=== PATIENT | male | born 1995 | race Caucasian/White ===

== ENCOUNTER 2019-12-03 17:17 | Emergency (ER) | payer OTHER, SELFPAY ==
--- OUTSIDE RECORDS SUMMARY | 2019-12-03 17:19 | XMS REPORT ---
:1995 Demographics Address [address] [place] [address] Email Address Preferred Language Unknown Marital Status Unknown Adventist Affiliation Unknown Race Unknown Additional Race(s) Unavailable Ethnic Group Unknown [facility] Address [address] [place] [address] Care Team Providers Name Role Phone Unavailable Unavailable Unavailable Payers Payer Name Policy Type Policy Number Effective Date Expiration Date Problems This patient has no known problems. Allergies, Adverse Reactions, Alerts Allergy Allergy Status Severity Reaction(s) Onset Inactive Treating Comments Name Type Date Date Clinician No Known DA Active U 2018-11 Allergies -13 00:00:0 0 Medications This patient has no known medications. Results Test Description Test Time Test Comments Text Results Atomic Results Result Comments - XR 2019-01-30 FAX: Wally Jamison [phone] [place]: St: CHEST 10:25:00 REG 1 V Name: DAVID PACKER [facility] [place] : 1995 Age/S: 23/M [address] [facility] [employer] Unit # : [id number] Loc: E.EXP [place], [place] Phys : Wally Means [employer]ANT O[employer] [address] Acct : [id number] Dis Date: Status: REG ER PHONE #: [phone] Exam Date: 01/30/2019 0950 FAX #: [phone] Reason: cough EXAMS: CPT CODE: [id number] XR CHEST 1 V 19525 Chest Radiograph History: cough Comparison: December 04, 2018 Location: R16 A single frontal view of the chest is submitted. The heart appears unchanged in size. Pulmonary vasculature is unremarkable. The visualized lung glez appear to be free of disease. The bones appear unchanged. IMPRESSION: There is no radiographic evidence of acute cardiopulmonary disease. at 1022 Reported and signed by: Skyler Cooper M.D. CC: Wally Means NP Technologist: AKASH GALINDO Trnrird Date/Time/By: 01/30/2019 (9575) : By: Jerry PAGE 1 Signed Report FAX: Wally Jamison [phone] [place]: St: REG --------- Name: DAVID PACKER Molly [facility] [place] : 1995 Age/S: 23/M [address] [facility] Unit # : [id number] Loc: E.EXP [place], [place] : [place] [address] Acct : [id number] Dis Date: Status: REG ER PHONE #: [phone] Exam Date: 01/30/2019 0950 FAX #: [phone] Reason: cough EXAMS: CPT CODE: [id number] XR CHEST 1 V 85282 <Continued> Orig Print D/T: S: 01/30/2019 (4404) PAGE 2 Signed Report - XR 2018-12-04 FAX: Joan Sheehan NP [phone] [place]: St: CHEST 10:27:00 REG 2 V Name: DAVID PACKER [facility] [place] : 1995 Age/S: 23/M [address] [facility] Unit # : [id number] [place]: [place] : [place] [address] Acct : [id number] Dis Date: Status: REG ER PHONE #: [phone] Exam Date: 12/04/2018 1024 FAX #: [phone] Reason: cough EXAMS: CPT CODE: [id number] XR CHEST 2 V 88657 C3 TIME OF STUDY: 12/04/2018 9:35 AM REASON FOR EXAM: cough COMPARISON: None FINDINGS: PA and lateral upright views of the chest were obtained. Lungs: Normal lung volume. No mass, or consolidation. Normal pulmonary vascularity. Pleura: No pleural effusion or pneumothorax. Heart and Mediastinum: Normal cardiomediastinal silhouette and great vessels. Bones : Normal regional skeletal structures. IMPRESSION: 1. No acute cardiopulmonary process. at 1021 Reported and signed by: Jose Boles M.D. CC: Joan Sheehan NP Technologist: CHERI Carter Date/Time/By: 12/04/2018 (1027) : By: [email or web address] PAGE 1 Signed Report FAX: Joan Sheehan NP [phone] [place]: St: REG --------- Name: PACKERDAVID [facility] [place] : 1995 Age/S: 23/M [address] [employer] [facility] Unit # : [id number] Loc: E.ERS [place], [place] Phys : Joan Sheehan [employer] OPERATOR [address] Acct : [id number] Dis Date: Status: REG ER PHONE #: [phone] Exam Date: 12/04/2018 1024 FAX #: [phone] Reason: cough EXAMS: CPT CODE: [id number] XR CHEST 2 V 85406 <Continued> Orig Print D/T: S: 12/04/2018 (7700) PAGE 2 Signed Report
--- NOTE | 2019-12-03 18:19 | RAD REPORT ---
EXAM DESCRIPTION: RAD - Pelvis - 12/03/2019 6:12 pm CLINICAL HISTORY: fall COMPARISON: No comparisons FINDINGS: No fracture, dislocation or radiographic evidence of AVN. IMPRESSION: Negative study.
--- NOTE | 2019-12-03 18:46 | RAD REPORT ---
EXAM DESCRIPTION: RAD - Femur Right - 12/03/2019 6:32 pm CLINICAL HISTORY: fall;Pain COMPARISON: No comparisons FINDINGS: No fracture or dislocation. Large lateral right soft tissue hematoma.
[2019-12-03] MEDS ORDERED: HYDROCODONE/APAP 7.5/325 MG TAB ONE (18:48)
--- NOTE | 2019-12-03 19:20 | RAD REPORT ---
EXAM DESCRIPTION: US - Extremity Venous Uni Ltd - 12/03/2019 7:10 pm CLINICAL HISTORY: PAIN Leg swelling and edema. COMPARISON: No comparisons FINDINGS: Right lower extremity venous system was interrogated with Doppler technique. Normal flow, compressibility and augmentation was noted. There is no DVT present. IMPRESSION: No evidence of right lower extremity deep venous thrombosis.
--- NOTE | 2019-12-03 19:52 | ER ---
Nurse's Notes [facility] Name: Marcos Hobbs Age: 24 yrs Sex: Male : 1995 Arrival Date: 12/03/2019 Time: 17:20 Bed 19 Private MD: Diagnosis: Hematoma right upper leg;Pain in right leg Presentation: 12/02 17:28 Chief complaint: Patient states: 2 weeks ago, skate boarding accident where pt fell and ca1 landed on R thigh/hip. It hurt for 2 days, then went away. Reports swelling noted on the R thigh since the accident. Today, it started to hurt really bad and swelling got bigger, very tender to touch, firm upon palpation. Coronavirus screen: The patient has NOT traveled to a country currently being monitored by the CDC within the last 14 days. The patient has NOT had contact with any known and/or suspected case of coronavirus. Ebola Screen: Patient negative for fever greater than or equal to 101.5 degrees Fahrenheit, and additional compatible Ebola Virus Disease symptoms Patient denies exposure to infectious person. Patient denies travel to an Ebola-affected area in the 21 days before illness onset. No symptoms or risks identified at this time. Initial Sepsis Screen: Does the patient meet any 2 criteria? No. Patient's initial sepsis screen is negative. Does the patient have a suspected source of infection? No. Patient's initial sepsis screen is negative. Risk Assessment: Do you want to hurt yourself or someone else? Patient reports no desire to harm self or others. Onset of symptoms was December 03, 2019. 17:28 Method Of Arrival: Ambulatory ca1 17:28 Acuity: DEANA 3 ca1 Historical: - Allergies: 17:33 No Known Allergies; ca1 - Home Meds: 17:33 None [Active]; ca1 - PMHx: 17:33 None; ca1 - PSHx: 17:34 Tonsillectomy; ca1 - Immunization history:: Adult Immunizations up to date, Last tetanus immunization: < 5 years ago Flu vaccine is up to date. - Social history:: Smoking status: Patient reports the use of cigarette tobacco products, smokes one pack cigarettes per day. Screenin:11 Abuse screen: Denies threats or abuse. Nutritional screening: No deficits noted. em Tuberculosis screening: No symptoms or risk factors identified. Fall Risk None identified. Assessment: 18:06 Reassessment: currently in x-ray dept. em 18:16 General: Appears in no apparent distress. uncomfortable, Behavior is calm, cooperative, em appropriate for age. Pain: Complains of pain in lateral aspect of right thigh Pain currently is 10 out of 10 on a pain scale. Pain began 2.5 weeks ago. Neuro: Level of Consciousness is awake, alert, obeys commands, Oriented to person, place, time, situation, Appropriate for age. Cardiovascular: Capillary refill < 3 seconds Patient's skin is warm and dry. Respiratory: Airway is patent Respiratory effort is even, unlabored, Respiratory pattern is regular, symmetrical. Derm: Skin is intact, is healthy with good turgor, Skin is pink, warm \T\ dry. Musculoskeletal: Capillary refill < 3 seconds, Range of motion: intact in all extremities, Swelling present in lateral aspect of right thigh. 19:10 Reassessment: Patient appears in no apparent distress at this time. Patient and/or family updated on plan of care and expected duration. Pain level reassessed. Patient is alert, oriented x 3, equal unlabored respirations, skin warm/dry/pink. 20:10 Reassessment: Patient appears in no apparent distress at this time. No changes from previously documented assessment. Patient and/or family updated on plan of care and expected duration. Pain level reassessed. Patient is alert, oriented x 3, equal unlabored respirations, skin warm/dry/pink. Vital Signs: 17:28 BP 103 / 81; Pulse 85; Resp 16 S; Temp 98.3(TE); Pulse Ox 99% on NC; Weight 120.66 kg ca1 (R); Height 6 ft. 2 in. (187.96 cm) (R); Pain 10/10; 20:00 BP 123 / 99; Pulse 85; Resp 18; Pulse Ox 100% on R/A; wh 17:28 Body Mass Index 34.15 (120.66 kg, 187.96 cm) ca1 ED Course: 17:20 Patient arrived in ED. rg4 17:21 Fracisco Mera PA is PHCP. cp 17:21 Fracisco Raygoza MD is Attending Physician. cp 17:33 Triage completed. ca1 17:34 Arm band placed on right wrist. ca1 17:40 Phil Otoole, RN is Primary Nurse. em 18:12 XRAY Pelvis In Process Unspecified. EDMS 18:12 Patient has correct armband on for positive identification. Bed in low position. Call em light in reach. 18:32 XRAY Femur RIGHT In Process Unspecified. EDMS 19:11 US Extremity Venous Unilateral Ltd In Process Unspecified. EDMS 19:50 Daniel Tellez MD is Referral Physician. cp 20:16 Crutch training done. Douglas wrap to lateral aspect of right thigh. wh 20:18 No provider procedures requiring assistance completed. Patient did not have IV access during this emergency room visit. Administered Medications: 18:44 Drug: Hydrocodone-Acetaminophen (7.5 mg-325 mg) 1 tabs Route: PO; em 20:15 Follow up: Response: No adverse reaction; Pain is decreased; RASS: Alert and Calm (0) Outcome: 19:52 Discharge ordered by MD. cp 20:19 Discharged to home ambulatory, with crutches, with friend. wh 20:19 Condition: stable 20:19 Discharge instructions given to patient, Instructed on discharge instructions, follow up and referral plans. no drinking with medication, no driving heavy equipment, medication usage, POC Demonstrated understanding of instructions, follow-up care, medications, crutch walking, POC Prescriptions given X 1. 20:19 Patient left the ED. Signatures: Dispatcher [employer] Phil Peterson, RN RN Fracisco Barton, JAK PA Soila Wills rg4 Marco Antonio Hogan Danielle Goetz RN RN ca1
--- NOTE | 2019-12-03 19:52 | EDPHYS ---
Physician Documentation [facility] Name: Marcos Hobbs Age: 24 yrs Sex: Male : 1995 Arrival Date: 12/03/2019 Time: 17:20 Bed 19 Private MD: ED Physician Fracisco Raygoza HPI: 12/02 17:55 This 24 yrs old Male presents to ER via Ambulatory with complaints of Leg cp Pain. 17:55 The patient presents with an injury, pain, that is acute. The complaints affect the cp lateral aspect of right thigh. 17:55 Context: resulted from the patient falling, the patient can fully bear weight, the cp patient is able to ambulate. 17:55 Onset: The symptoms/episode began/occurred 2 week(s) ago. Treatment prior to arrival cp includes: no previous treatment. Historical: - Allergies: 17:33 No Known Allergies; ca1 - Home Meds: 17:33 None [Active]; ca1 - PMHx: 17:33 None; ca1 - PSHx: 17:34 Tonsillectomy; ca1 - Immunization history:: Adult Immunizations up to date, Last tetanus immunization: < 5 years ago Flu vaccine is up to date. - Social history:: Smoking status: Patient reports the use of cigarette tobacco products, smokes one pack cigarettes per day. ROS: 18:00 Constitutional: Negative for body aches, chills, fever, poor PO intake. cp 18:00 Eyes: Negative for injury, pain, redness, and discharge. cp 18:00 Cardiovascular: Negative for chest pain, palpitations. 18:00 Respiratory: Negative for cough, shortness of breath, wheezing. 18:00 Abdomen/GI: Negative for abdominal pain, nausea, vomiting, and diarrhea. 18:00 Back: Negative for pain at rest, pain with movement. 18:00 MS/extremity: Positive for pain, swelling, tenderness, of the lateral aspect of right thigh, Negative for decreased range of motion, paresthesias. 18:00 Skin: Negative for ecchymosis, erythema, rash. 18:00 All other systems are negative. Exam: 18:10 Constitutional: The patient appears in no acute distress, alert, awake, non-toxic, well cp developed, well nourished, uncomfortable. 18:10 Head/Face: Normocephalic, atraumatic. cp 18:10 Eyes: Periorbital structures: appear normal, Conjunctiva: normal, no exudate, no injection, Sclera: no appreciated abnormality, Lids and lashes: appear normal, bilaterally. 18:10 Chest/axilla: Inspection: normal, Palpation: is normal, no crepitus, no tenderness. 18:10 Cardiovascular: Rate: normal, Rhythm: regular. 18:10 Respiratory: the patient does not display signs of respiratory distress, Respirations: normal. 18:10 Abdomen/GI: Inspection: abdomen appears normal, Bowel sounds: active, all quadrants, Palpation: abdomen is soft and non-tender, in all quadrants, voluntary guarding, is not appreciated, involuntary guarding, is not appreciated. 18:10 Back: pain, is absent, ROM is normal. 18:10 Musculoskeletal/extremity: Extremities: grossly normal except: noted in the lateral aspect of right thigh: pain, swelling, tenderness, There is no evidence of ecchymosis, erythema, ROM: intact in all extremities, Perfusion: the extremity is normally perfused throughout, Sensation intact. 18:10 Skin: cellulitis, is not appreciated, no rash present. Vital Signs: 17:28 BP 103 / 81; Pulse 85; Resp 16 S; Temp 98.3(TE); Pulse Ox 99% on NC; Weight 120.66 kg ca1 (R); Height 6 ft. 2 in. (187.96 cm) (R); Pain 10/10; 20:00 BP 123 / 99; Pulse 85; Resp 18; Pulse Ox 100% on R/A; wh 17:28 Body Mass Index 34.15 (120.66 kg, 187.96 cm) ca1 MDM: 17:35 Patient medically screened. nuzhat 18:30 Differential diagnosis: closed fracture, contusion, hematoma, abscess, cellulitis. cp 19:11 ED course: no active prescriptions for controlled substances noted according to [facility] prescription monitoring program. 19:47 Physician consultation: Daniel Tellez MD was called at 19:47, was contacted at 19:47, regarding patient's condition, outpatient follow-up, tomorrow, and will see patient in office, tomorrow. 19:51 Data reviewed: vital signs, nurses notes, radiologic studies, plain films, ultrasound. 19:51 Counseling: I had a detailed discussion with the patient and/or guardian regarding: the cp historical points, exam findings, and any diagnostic results supporting the discharge/admit diagnosis, radiology results, the need for outpatient follow up, for definitive care, a general surgeon. Response to treatment: the patient's symptoms have markedly improved after treatment, and as a result, I will discharge patient. 12/02 17:48 Order name: XRAY Pelvis; Complete Time: 19:07 cp 12/02 19:07 Interpretation: Report reviewed. cp 12/02 17:48 Order name: XRAY Femur RIGHT; Complete Time: 19:07 cp 12/02 19:07 Interpretation: Report reviewed. cp 12/02 17:49 Order name: US Extremity Venous Unilateral Ltd; Complete Time: 19:29 cp 12/02 19:47 Order name: Douglas Wrap; Complete Time: 20:15 cp 12/02 19:47 Order name: Crutches; Complete Time: 20:15 cp Administered Medications: 18:44 Drug: Hydrocodone-Acetaminophen (7.5 mg-325 mg) 1 tabs Route: PO; em 20:15 Follow up: Response: No adverse reaction; Pain is decreased; RASS: Alert and Calm (0) wh Disposition: 12/03 06:11 Co-signature as Attending Physician, Fracisco Raygoza MD I agree with the assessment and nuzhat plan of care. Disposition: 12/03/19 19:52 Discharged to Home. Impression: Hematoma right upper leg, Pain in right leg. - Condition is Stable. - Discharge Instructions: Hematoma, Musculoskeletal Pain. - Prescriptions for Tylenol- Codeine #3 300-30 mg Oral Tablet - take 2 tablets by ORAL route every 6 hours As needed; 20 tablet. - Medication Reconciliation Form, Thank You Letter, Antibiotic Education, Prescription Opioid Use, Work release form form. - Follow up: Daniel Tellez MD; When: Tomorrow; Reason: Recheck today's complaints. - Problem is new. - Symptoms have improved. Signatures: Dispatcher [employer] Fracisco Delgado MD MD cha Munoz, Edgar, RN RN Fracisco Barton PA PA cp Habalo, Winsy wh Acob, Cheryl, RN RN ca1 Corrections: (The following items were deleted from the chart) 12/02 20:19 19:52 12/03/2019 19:52 Discharged to Home. Impression: Hematoma right upper leg; Pain wh in right leg. Condition is Stable. Forms are Medication Reconciliation Form, Thank You Letter, Antibiotic Education, Prescription Opioid Use. Follow up: Daniel Tellez; When: Tomorrow; Reason: Recheck today's complaints. Problem is new. Symptoms have improved. cp
[2019-12-03 20:27] VITALS: TEMP 98.3
[2019-12-03 20:28] VITALS: BP 123/99; O2SAT 100
== END 2019-12-03 20:19 | disposition home or self-care (01) ==
LOC: ER 17:17
DX: S80.11XA Contusion of right lower leg, initial encounter (principal); M79.604 Pain in right leg; X58.XXXA Exposure to other specified factors, initial encounter; Y93.9 Activity, unspecified
CPT/HCPCS: 72170; 93971; 99284

== ENCOUNTER 2020-11-12 16:32 | Emergency (ER) | payer SELFPAY ==
--- OUTSIDE RECORDS SUMMARY | 2020-11-12 16:34 | XMS REPORT | Continuity of Care Document ---
:1995 Author Organization [facility] t Address [address] [place] [address] Care Team Providers Name Role Phone Genna Mujica Attending Clinician Payers Payer Name Policy Type Policy Number Effective Date Expiration Date S ource Problems This patient has no known problems. Allergies, Adverse Reactions, Alerts Allergy Allergy Status Severity Reaction(s) Onset Inactive Treating Comm ents Source Name Type Date Date Clinician No Known DA [facility] Medications This patient has no known medications. Procedures This patient has no known procedures. Encounters Start End Encounter Admission Attending Care Care Encounter Source Date/Time Date/Time Type Type Clinicians Facility Department ID 2019-12-04 2019-12-04 [facility] [id number] 11:59:23 13:08:00 Rebekah Stanton [id number] [place] [id number] [place] [id number] Results Test Description Test Time Test Comments Results Result Sour e Comments - XR CHEST 1 V 2019-01-30 FAX: Y 10:25:00 Wally Means [phone] [place]: St: REG Name: DAVID HOBBS [facility] : 1995 Age/S: 23/M [address] Unit #: [id number] Loc: E.EXP [place], [place] Phys: Wally Means RESIDENTIAL [place] [address] Acct: [id number] Dis Date: Status: REG ER PHONE #: [phone] Exam Date: 01/30/2019 0950 FAX #: [phone] Reason: cough EXAMS: CPT CODE: [id number] XR CHEST 1 V 02418 Chest Radiograph History: cough Comparison: December 04, 2018 Location: R16 A single frontal view of the chest is submitted. The heart appears unchanged in size. Pulmonary vasculature is unremarkable. The visualized lung glez appear to be free of disease. The bones appear unchanged. IMPRESSION: There is no radiographic evidence of acute cardiopulmonary disease. at 1024 Reported and signed by: Skyler Cooper M.D. CC: Wally Means NP Technologist: AKASH Carter Date/Time/By: 01/30/2019 (9588) : By: JaisonPMT PAGE 1 Signed Report FAX: Wally Jamison [phone] [place]: St: REG Name: DAVID HOBBS [facility] : 1995 Age/S: 23/M [address] Unit #: [id number] Loc: E.EXP [place], [place] Phys: Wally Means RESIDENTIAL [place] [address] Acct: [id number] Dis Date: Status: REG ER PHONE #: [phone] Exam Date: 01/30/2019 0950 FAX #: [phone] Reason: cough EXAMS: CPT CODE: [id number] XR CHEST 1 V 96155 <Continued> Orig Print D/T: S: 01/30/2019 (7254) PAGE 2 Signed Report - XR CHEST 2 V 2018-12-04 FAX: 10:27:00 Joan Sheehan NP [phone] [place]: St: REG Name: HOBBSDAVID [facility] : 1995 Age/S: 23/M [address] Unit #: [id number] Loc: E.ERS [place], [place] Phys: AguilaJoan RESIDENTIAL [place] [address] Acct: [id number] Dis Date: Status: REG ER PHONE #: [phone] Exam Date: 12/04/2018 1024 FAX #: [phone] Reason: cough EXAMS: CPT CODE: [id number] XR CHEST 2 V 35223 C3 TIME OF STUDY: 12/04/2018 9:35 AM REASON FOR EXAM: cough COMPARISON: None FINDINGS: PA and lateral upright views of the chest were obtained. Lungs: Normal lung volume. No mass, or consolidation. Normal pulmonary vascularity. Pleura: No pleural effusion or pneumothorax. Heart and Mediastinum: Normal cardiomediastinal silhouette and great vessels. Bones: Normal regional skeletal structures. IMPRESSION: 1. No acute cardiopulmonary process. at 1027 Reported and signed by: Jose Boles M.D. CC: Joan Sheehan NP Technologist: CHERI GENTILE Trncrystalrd Date/Time/By: 12/04/2018 (1024) : By: [email or web address] PAGE 1 Signed Report FAX: Joan Sheehan NP [phone] [place]: St: REG Name: DAVID HOBBS [facility] [place] [facility] : 1995 Age/S: 23/M [address] [facility] Unit #: [id number] Loc: [place], [place]: [place] [address] Acct: [id number] Dis Date: Status: REG ER PHONE #: [phone] Exam Date: 12/04/2018 1024 FAX #: [phone] Reason: cough EXAMS: CPT CODE: [id number] XR CHEST 2 V 80889 <Continued> Orig Print D/T: S: 12/04/2018 (7337) PAGE 2 Signed Report
--- NOTE | 2020-11-12 18:30 | RAD REPORT ---
EXAM DESCRIPTION: Cailin Lunsford (2 Views)11/12/2020 5:37 pm CLINICAL HISTORY: Chest pain COMPARISON: None FINDINGS: The lungs appear clear of acute infiltrate. The heart is normal size IMPRESSION: No acute abnormalities displayed
--- NOTE | 2020-11-12 21:13 | ER ---
Nurse's Notes [facility] Name: Marcos Hobbs Age: 25 yrs Sex: Male : 1995 Arrival Date: 11/12/2020 Time: 16:35 Bed Waiting Private MD: Diagnosis: Presentation: 11/12 16:44 Chief complaint: Patient states: i am having pain under my right breast and when i tw2 breath or when i cough it hurts really bad, bending over is like impossible, its a constant pain, it started hurting about 3 days ago. Coronavirus screen: shortness of breath, Client presents with at least one sign or symptom that may indicate coronavirus-19. Standard/surgical mask placed on the client. Provider contacted for isolation considerations. Ebola Screen: Patient denies travel to an Ebola-affected area in the 21 days before illness onset. Initial Sepsis Screen: Does the patient meet any 2 criteria? No. Patient's initial sepsis screen is negative. Does the patient have a suspected source of infection? No. Patient's initial sepsis screen is negative. Risk Assessment: Do you want to hurt yourself or someone else? Patient reports no desire to harm self or others. Onset of symptoms was November 12, 2020. 16:44 Method Of Arrival: Ambulatory tw2 16:44 Acuity: DEANA 3 tw2 Triage Assessment: 16:47 General: Appears in no apparent distress. Behavior is calm, cooperative, appropriate tw2 for age. Pain: Complains of pain in right lateral anterior chest and right breast. Respiratory: Reports shortness of breath at rest on exertion pain with cough pain with movement pain with respiration. GI: No signs and/or symptoms were reported involving the gastrointestinal system. Historical: - Allergies: 16:47 No Known Allergies; tw2 - Home Meds: 16:47 None [Active]; tw2 - PMHx: 16:47 None; tw2 - PSHx: 16:47 Tonsillectomy; tw2 - Immunization history:: Adult Immunizations. - Social history:: Smoking status: Patient reports the use of cigarette tobacco products, denies chronic smoking, but will smoke occasionally. Assessment: 21:11 Reassessment: Reassessment: Talked to the pt on the phone. He states, "I left after ca1 waiting 3 hours and I cannot come back anymore". Vital Signs: 16:44 BP 117 / 66; Pulse 85; Resp 17; Temp 98.5(TE); Pulse Ox 98% on R/A; Weight 113.4 kg tw2 (R); Height 6 ft. 2 in. (187.96 cm); Pain 7/10; 16:44 Body Mass Index 32.10 (113.40 kg, 187.96 cm) tw2 ED Course: 16:35 Patient arrived in ED. as 16:46 Triage completed. tw2 16:48 Arm band placed on. tw2 17:36 Chest Pa And Lat (2 Views) XRAY In Process Unspecified. EDMS 21:05 Patient's name was called from ER lobby. No response. Unable to locate patient. Will ca1 disposition as left without being seen by a provider. Administered Medications: No medications were administered Outcome: 21:13 Patient left the ED. ca1 Signatures: Dispatcher [employer] EDMS Moraima Cedeño Tara, RN RN tw2 Danielle Goetz RN RN ca1 Corrections: (The following items were deleted from the chart) 21:12 21:11 Reassessment: ca1 ca1
[2020-11-13 02:46] VITALS: BP 117/66; TEMP 98.5; O2SAT 98
== END 2020-11-12 21:13 | disposition left against medical advice (07) ==
LOC: ER 16:32
DX: Z53.21 Procedure and treatment not carried out due to patient leaving prior to being seen by health care provider (principal)
CPT/HCPCS: 71046; 99282

== ENCOUNTER 2020-11-15 13:35 | Emergency (ER) | payer SELFPAY ==
--- OUTSIDE RECORDS SUMMARY | 2020-11-15 13:38 | XMS REPORT | Continuity of Care Document ---
:1995 Author Organization [facility] t Address [address] [place] [address] Care Team Providers Name Role Phone Genna Mujica Attending Clinician Payers Payer Name Policy Type Policy Number Effective Date Expiration Date S ource Problems This patient has no known problems. Allergies, Adverse Reactions, Alerts Allergy Allergy Status Severity Reaction(s) Onset Inactive Treating Comm ents Source Name Type Date Date Clinician No Known DA Active U [facility] 3 [facility] s 00:00: d 00 [facility] Medications This patient has no known medications. Procedures This patient has no known procedures. Encounters Start End Encounter Admission Attending Care Care Encounter Source Date/Time Date/Time Type Type Clinicians Facility Department ID 2019-12-04 2019-12-04 [facility] [id number] 11:59:23 13:08:00 Rebekah Stanton [id number] [place] [id number] [place] [id number] Results Test Description Test Time Test Comments Results Result [facility] e Comments - XR CHEST 1 V 2019-01-30 FAX: Y 10:25:00 Wally Means [phone] [place]: St: REG Name: PACKERDAVID [facility] : 1995 Age/S: 23/M [address] Unit #: [id number] Loc: E.EXP [place], [place] Phys: Wally Means RENAL NURSE [address] Acct: [id number] Dis Date: Status: REG ER PHONE #: [phone] Exam Date: 01/30/2019 0950 FAX #: [phone] Reason: cough EXAMS: CPT CODE: [id number] XR CHEST 1 V 85555 Chest Radiograph History: cough Comparison: December 04, [...] Means NP Technologist: AKASH Carter Date/Time/By: 01/30/2019 (6967) : By: JaisonPMT PAGE 1 Signed Report FAX: Wally Jamison [phone] [place]: St: REG Name: DAVID PACKER [facility] : 1995 Age/S: 23/M [address] Unit #: [id number] Loc: E.EXP [place], [place] Phys: Wally Maens RENAL NURSE [address] Acct: [id number] Dis Date: Status: REG ER PHONE #: [phone] Exam Date: 01/30/2019 0950 FAX #: [phone] Reason: cough EXAMS: CPT CODE: [id number] XR CHEST 1 V 46055 <Continued> Orig Print D/T: S: 01/30/2019 (9168) PAGE 2 Signed Report - XR CHEST 2 V 2018-12-04 FAX: 10:27:00 Joan Sheehan NP [phone] [place]: St: REG Name: DAVID PACKER [facility] : 1995 Age/S: 23/M [address] [facility] Unit #: [id number] [place]: [place] Phys: Joan Sheehan RENAL NURSE [address] Acct: [id number] Dis Date: Status: REG ER PHONE #: [phone] Exam Date: 12/04/2018 1024 FAX #: [phone] Reason: cough EXAMS: CPT CODE: [id number] XR CHEST 2 V 33996 C3 TIME OF STUDY: 12/04/2018 9:35 AM REASON FOR EXAM: cough COMPARISON: None FINDINGS: PA and lateral upright views of the chest were obtained. Lungs: Normal lung volume. No mass, or consolidation. Normal pulmonary vascularity. Pleura: No pleural effusion or pneumothorax. Heart and Mediastinum: Normal cardiomediastinal silhouette and great vessels. Bones: Normal regional skeletal structures. IMPRESSION: 1. No acute cardiopulmonary process. at 1026 Reported and signed by: Jose Boles M.D. CC: Joan Sheehan NP Technologist: CHERI Carter Date/Time/By: 12/04/2018 (5209) : By: [email or web address] PAGE 1 Signed Report FAX: Joan Sheehan NP [phone] [place]: St: REG Name: DAVID PACKER [facility] : 1995 Age/S: 23/M [address] [facility] Unit #: [id number] [place]: [place]: [place] [id number] Acct: [id number] Dis Date: Status: REG ER PHONE #: [phone] Exam Date: 12/04/2018 1024 FAX #: [phone] Reason: cough EXAMS: CPT CODE: [id number] XR CHEST 2 V 51082 <Continued> Orig Print D/T: S: 12/04/2018 (7350) PAGE 2 Signed Report
--- NOTE | 2020-11-15 16:28 | ER ---
Nurse's Notes [facility] Name: Marcos Hobbs Age: 25 yrs Sex: Male : 1995 Arrival Date: 11/15/2020 Time: 13:43 Bed Waiting Private MD: Diagnosis: Presentation: 11/15 13:45 Chief complaint: Patient states: right side pain with coughing or breathing x 5 days. sv Coronavirus screen: Client denies travel out of the [place] in the last 14 days. At this time, the client does not indicate any symptoms associated with coronavirus-19. Ebola Screen: No symptoms or risks identified at this time. Risk Assessment: Do you want to hurt yourself or someone else? Patient reports no desire to harm self or others. Onset of symptoms was October 2020. 13:45 Method Of Arrival: Ambulatory sv 13:45 Acuity: DEANA 4 sv 13:47 Initial Sepsis Screen: Does the patient meet any 2 criteria? No. Patient's initial sv sepsis screen is negative. Does the patient have a suspected source of infection? No. Patient's initial sepsis screen is negative. Triage Assessment: 13:48 General: Appears in no apparent distress. uncomfortable, Behavior is calm, cooperative, sv appropriate for age. Pain: Complains of pain in right lateral anterior chest. Neuro: Level of Consciousness is awake, alert, obeys commands, Oriented to person, place, time, situation, Gait is steady. Respiratory: Respiratory effort is even, unlabored. Historical: - Allergies: 13:46 No Known Allergies; sv - PMHx: 13:46 None; sv - PSHx: 13:46 Tonsillectomy; sv - Immunization history:: Adult Immunizations unknown. - Social history:: Smoking status: Patient reports the use of cigarette tobacco products, smokes one-half pack cigarettes per day. Assessment: 13:49 Reassessment: Received VO from Dr Raygoza for CXR. sv Vital Signs: 13:47 BP 112 / 66; Pulse 87; Resp 20; Temp 98.3; Pulse Ox 100% ; Weight 113.4 kg; Height 6 sv ft. 2 in. (187.96 cm); Pain 5/10; 13:47 Body Mass Index 32.10 (113.40 kg, 187.96 cm) sv ED Course: 13:43 Patient arrived in ED. mr 13:45 Arm band placed on. sv 13:46 Triage completed. sv 15:58 Patient's name was called from ER lobby. No response. sv 16:17 Patient's name was called from ER lobby. No response. sv 16:27 Patient's name was called from ER lobby. No response. sv Administered Medications: No medications were administered Outcome: 16:27 Patient left the ED. sv Signatures: Padmini Sánchez RN RN sv Filemon Kiley mr Corrections: (The following items were deleted from the chart) 13:49 13:47 Pulse 87bpm; Resp 20bpm; Pulse Ox 100%; Temp 98.3F; 113.4 kg; Height 6 ft. 2 in.; sv BMI: 32.1; Pain 5/10; sv
[2020-11-15 16:41] VITALS: BP 112/66; TEMP 98.3; O2SAT 100
== END 2020-11-15 16:27 | disposition left against medical advice (07) ==
LOC: ER 13:35
DX: Z53.21 Procedure and treatment not carried out due to patient leaving prior to being seen by health care provider (principal)
CPT/HCPCS: 99281

== ENCOUNTER 2021-05-07 10:49 | Emergency (ER) | payer SELFPAY ==
--- OUTSIDE RECORDS SUMMARY | 2021-05-07 10:51 | XMS REPORT | Continuity of Care Document ---
:1995 Author Organization [facility] t Address [address] [place] [address] Care Team Providers Name Role Phone Alvarez Attending Clinician Jocelyn Zepeda Attending Clinician Doctor Unassigned, Name Attending Clinician Unavailable Genna Mujica Attending Clinician Payers Payer Name Policy Type Policy Number Effective Date Expiration Date S ource Problems This patient has no known problems. Allergies, Adverse Reactions, Alerts Allergy Allergy Status Severity Reaction(s) Onset Inactive Treating Comm ents Source Name Type Date Date Clinician No Known DA Active U 2018- [facility]ie 3-13 [place] s 00:00: d 00 [facility] Medications This patient has no known medications. Procedures This patient has no known procedures. Encounters Start End Encounter Admission Attending Care Care Encounter Source Date/Time Date/Time Type Type Clinicians Facility Department ID 2021-05-07 2021-05-07 Emergency Singer [facility] [id number] 09:43:00 10:22:00 Nolberto Stanton [id number] [place] 4.2.7.2.686 [place] [id number] 2021-03-10 2021-03-10 Emergency Angelita Boss [facility] [id number] 13:05:00 14:24:00 Jocelyn Stanton 350.1.13.10 [place] 4.2.7.2.686 [place] [id number] 2020-11-16 2020-11-16 Emergency Angelita Boss [facility] [id number] 15:16:00 16:37:00 Jocelyn Stanton 350.1.13.10 [place] 4.2.7.2.686 [place] [id number] 2020-11-16 2020-11-16 Orders Doctor BIBI [id number] 00:00:00 00:00:00 Only Unassigned, SEBASTIAN 350.1.13.10 [place] [id number] 2019-12-04 2019-12-04 Emergency Berna [facility] [id number] 11:59:23 13:08:00 Rebekah Stanton [id number] [place] 4.2.7.2.686 [place] [address] [id number] Results Test Description Test Time Test Comments Results Result [facility] e Comments - XR CHEST 1 V 2019-01-30 FAX: Y 10:25:00 Wally Means [phone] [place]: St: REG Name: DAVID PACKER [facility] : 1995 Age/S: 23/M [address] [facility] [email or web address] [facility] Unit #: [id number] Loc: E.EXP [place], [place] Phys: Wally Means BOOK REVIEWER [address] Acct: [id number] Dis Date: Status: REG ER PHONE #: [phone] Exam Date: 01/30/2019 0950 FAX #: [phone] Reason: cough EXAMS: CPT CODE: [id number] XR CHEST 1 V 76786 Chest Radiograph History: cough Comparison: December 04, 2018 Location: R16 A single frontal view of the chest is submitted. The heart appears unchanged in size. Pulmonary vasculature is unremarkable. The visualized lung glez appear to be free of disease. The bones appear unchanged. IMPRESSION: There is no radiographic evidence of acute cardiopulmonary disease. at 1028 Reported and signed by: Skyler Cooper M.D. CC: Wally Means NP Technologist: AKASH GALINDO Trnscrd Date/Time/By: 01/30/2019 (5282) : By: JaisonPMT PAGE 1 Signed Report FAX: Wally Jamison [phone] [place]: St: REG Name: DAVID PACKER [facility] : 1995 Age/S: 23/M [address] [facility] [email or web address] [facility] Unit #: [id number] Loc: E.EXP [place], [place] Phys: Wally Means BOOK REVIEWER [address] Acct: [id number] Dis Date: Status: REG ER PHONE #: [phone] Exam Date: 01/30/2019 0950 FAX #: [phone] Reason: cough EXAMS: CPT CODE: [id number] XR CHEST 1 V 02649 <Continued> Orig Print D/T: S: 01/30/2019 (1494) PAGE 2 Signed Report - XR CHEST 2 V 2018-12-04 FAX: 10:27:00 Joan Sheehan NP [phone] [place]: St: REG Name: DAVID PACKER [facility] : 1995 Age/S: 23/M [address] [facility] [email or web address] [facility] Unit #: [id number] Loc: [place], [place]: [place] [id number] Acct: [id number] Dis Date: Status: REG ER PHONE #: [phone] Exam Date: 12/04/2018 1024 FAX #: [phone] Reason: cough EXAMS: CPT CODE: [id number] XR CHEST 2 V 11230 C3 TIME OF STUDY: 12/04/2018 9:35 AM [...] CC: Joan Sheehan NP Technologist: CHERI GENTILE [facility] Date/Time/By: 12/04/2018 (4286) : By: [email or web address] PAGE 1 Signed Report FAX: Joan Sheehan NP [phone] [place]: St: REG Name: PACKERDAVID P [facility] : 1995 Age/S: 23/M [address] [facility] Unit #: [id number] Loc: RA[place], [place]: [place] [id number] Acct: [id number] Dis Date: Status: REG ER PHONE #: [phone] Exam Date: 12/04/2018 1024 FAX #: [phone] Reason: cough EXAMS: CPT CODE: [id number] XR CHEST 2 V 17006 <Continued> Orig Print D/T: S: 12/04/2018 (3723) PAGE 2 Signed Report
--- NOTE | 2021-05-07 13:17 | ER ---
Nurse's Notes [facility] Name: Marcos Hobbs Age: 25 yrs Sex: Male : 1995 Arrival Date: 05/07/2021 Time: 10:52 Bed 28 Private MD: Diagnosis: Coronavirus infection, unspecified Presentation: 05/07 11:48 Chief complaint: Patient states: body aches. Coronavirus screen: Client denies travel da3 out of the [place] in the last 14 days. Ebola Screen: No symptoms or risks identified at this time. Risk Assessment: Do you want to hurt yourself or someone else? Patient reports no desire to harm self or others. 11:48 Method Of Arrival: Ambulatory da3 11:48 Acuity: DEANA 5 da3 Triage Assessment: 11:51 General: Appears in no apparent distress. Behavior is calm, cooperative. da3 Historical: - Allergies: 11:49 No Known Allergies; da3 - PMHx: 11:49 Arthritis; da3 - Immunization history:: Client reports having NOT received the Covid vaccine. Vital Signs: 11:51 BP 116 / 85; Pulse 80; Resp 18; Temp 99.3; Pulse Ox 98% ; da3 13:56 BP 130 / 68; Pulse 69; Temp 96.5; Pulse Ox 96% ; dw ED Course: 10:52 Patient arrived in ED. am2 10:54 Annie Canada F[facility]-C [facility] kb 10:54 Cortez Pappas MD is Attending Physician. kb 11:49 Triage completed. da3 13:56 Tina Barakat, RN is Primary Nurse. dw Administered Medications: No medications were administered Outcome: 13:16 Discharge ordered by . kb 14:09 Patient left the ED. ll1 Signatures: Annie Canada FNP-C FNP-Tina Krueger RN Iesha Leung am2 Mariza Norman RN RN ll1 Calvin Arnold RN RN da3
--- NOTE | 2021-05-07 13:17 | EDPHYS ---
Physician Documentation [facility] Name: Marcos Hobbs Age: 25 yrs Sex: Male : 1995 Arrival Date: 05/07/2021 Time: 10:52 Bed 28 Private MD: ED Physician Cortez Pappas HPI: 05/07 13:14 This 25 yrs old Male presents to ER via Ambulatory with complaints of r/o kb covid. 13:14 The patient or guardian reports cough, that is intermittent, described as mild, flu kb symptoms, myalgias. Onset: The symptoms/episode began/occurred 3 day(s) ago. Severity of symptoms: At their worst the symptoms were moderate, in the emergency department the symptoms are unchanged. Modifying factors: The symptoms are alleviated by nothing, the symptoms are aggravated by nothing. Associated signs and symptoms: Pertinent positives: diarrhea, rhinorrhea. The patient has not experienced similar symptoms in the past. The patient has not recently seen a physician. Pt reports he was exposed to covid and has had symptoms for 2 days. Historical: - Allergies: 11:49 No Known Allergies; da3 - PMHx: 11:49 Arthritis; da3 - Immunization history:: Client reports having NOT received the Covid vaccine. ROS: 13:13 Constitutional: Negative for fever, chills, and weight loss. kb 13:13 ENT: Positive for rhinorrhea, sinus congestion. 13:13 Respiratory: Positive for cough, Negative for dyspnea on exertion, hemoptysis, orthopnea, pleurisy, shortness of breath, sputum production, wheezing. 13:13 Abdomen/GI: Positive for diarrhea. 13:13 All other systems are negative. 13:14 Constitutional: Positive for body aches. kb Exam: 13:14 Constitutional: This is a well developed, well nourished patient who is awake, alert, kb and in no acute distress. Head/Face: Normocephalic, atraumatic. ENT: Moist Mucous membranes Cardiovascular: Regular rate and rhythm with a normal S1 and S2. No gallops, murmurs, or rubs. No pulse deficits. Respiratory: Respirations even and unlabored. No increased work of breathing, no retractions or nasal flaring. Skin: Warm, dry with normal turgor. Normal color. MS/ Extremity: Pulses equal, no cyanosis. Neurovascular intact. Full, normal range of motion. Neuro: Awake and alert, GCS 15, oriented to person, place, time, and situation. Moves all extremities. Normal gait. Psych: Awake, alert, with orientation to person, place and time. Behavior, mood, and affect are within normal limits. Vital Signs: 11:51 BP 116 / 85; Pulse 80; Resp 18; Temp 99.3; Pulse Ox 98% ; da3 13:56 BP 130 / 68; Pulse 69; Temp 96.5; Pulse Ox 96% ; dw MDM: 11:31 Patient medically screened. kb 13:13 Data reviewed: vital signs, nurses notes. Data interpreted: Pulse oximetry: on room air kb is 98 %. Interpretation: normal. Counseling: I had a detailed discussion with the patient and/or guardian regarding: the historical points, exam findings, and any diagnostic results supporting the discharge/admit diagnosis, lab results, the need for outpatient follow up, a family practitioner, to return to the emergency department if symptoms worsen or persist or if there are any questions or concerns that arise at home. 05/07 11:32 Order name: COVID-19 : Document "Date of Symptom Onset" if Symptomatic. kb 05/07 13:11 Order name: SARS-COV-2 RT PCR; Complete Time: 13:13 EDMS Administered Medications: No medications were administered Disposition: 14:47 Co-signature as Attending Physician, Cortez Pappas MD I agree with the assessment and kdr plan of care. Disposition Summary: 05/07/21 13:16 Discharge Ordered Location: Home kb Condition: Stable kb Diagnosis - Coronavirus infection, unspecified kb Followup: kb - With: Emergency Department - When: As needed - Reason: Worsening of condition Followup: kb - With: Private Physician - When: 2 - 3 days - Reason: Recheck today's complaints, Continuance of care, Re-evaluation by your physician Discharge Instructions: - Discharge Summary Sheet kb - Viral Respiratory Infection, [id number] kb - COVID-19 kb Forms: - Medication Reconciliation Form kb - Thank You Letter kb - Antibiotic Education kb - Prescription Opioid Use kb Signatures: Dispatcher [employer] EDMS Annie Canada, Cortez Ascencio MD MD [facility] Calvin Arnold RN RN da3 Corrections: (The following items were deleted from the chart) 12:09 11:33 CORONAVIRUS ordered. EDMS EDMS 13:14 13:13 Constitutional: Negative for fever, chills, and weight loss, kb kb 13:14 13:14 Constitutional: This is a well developed, well nourished patient who is awake, kb alert, and in no acute distress. Head/Face: Normocephalic, atraumatic. ENT: Moist Mucous membranes Cardiovascular: Regular rate and rhythm with a normal S1 and S2. No gallops, murmurs, or rubs. No pulse deficits. Respiratory: Respirations even and unlabored. No increased work of breathing, no retractions or nasal flaring. Skin: Warm, dry with normal turgor. Normal color. MS/ Extremity: Pulses equal, no cyanosis. Neurovascular intact. Full, normal range of motion. Neuro: Awake and alert, GCS 15, oriented to person, place, time, and situation. Moves all extremities. Normal gait. Psych: Awake, alert, with orientation to person, place and time. Behavior, mood, and affect are within normal limits. kb
[2021-05-07 14:56] VITALS: BP 130/68; TEMP 96.5; O2SAT 96
== END 2021-05-07 14:09 | disposition home or self-care (01) ==
LOC: ER 10:49
DX: U07.1 COVID-19 (principal)
CPT/HCPCS: 99281; U0003

== ENCOUNTER 2023-12-27 12:05 | Emergency (ER) | payer SELFPAY ==
--- OUTSIDE RECORDS SUMMARY | 2023-12-27 12:08 | XMS REPORT | Continuity of Care Document ---
Author Name Unknown Address [address] [facility] [address]. [address] [place] [address] [facility] Address [address] [facility]. [address] [place] [address] Care Team Providers Care Crime Lab Technician Name Role Phone Pcp, Patient Does Not Have A Primary Care Physic mayo Doctor Unassigned, [employer] Attending Clinician Nolberto Manzano DO Attending Clinician [phone] Angelita Zepeda Attending Clinician [phone] Angelita PURVIS Attending Clinician Unavailable Yara Mujica Attending Clinician [phone] YARA QUIROGA Attending Clinician Unavailable Payers Payer Name Policy Type Policy Number Effective Date Expirati on Date Source Problems Condition Name Condition Details Condition Category Status Onset Date Resolution Date Last Treatment Date Treating Clinician Comments Source Psoriasis Psoriasis Disease Active 2013-09 00:00: 00 [facility] Psoriatic arthritis Psoriatic arthritis Disease Active 2013-09 00:00: 00 [facility] Allergies, Adverse Reactions, Alerts Allergy Name Allergy Type Status Severity Reaction(s) Onset Date Inactive Date Treating Clinician Comments Source No Known Allergie s DA Active U 11-28 00:00: 00 [facility] NO KNOWN ALLERGIE S Drug Class Active [facility] Social History Social Habit Start Date Stop Date Quantity Comments Source Alcohol intake 2019-12-04 00:00:00 2019-12-04 00:00:00 [facility] Sex Assigned At 1995 00:00:00 1995 00:00:00 [facility] Smoking Status Start Date Stop Date Source Never smoked tobacco [facility] Medications Ordered Medication Name Filled Medication Name Start Date Stop Date Current Medication? Ordering Clinician Indication Dosage Frequency Signature (SIG) Comments Components Source ondansetron (ZOFRAN ODT) 4 mg disintegrat ing tablet 03-10 00:00: 00 Yes [id number] 4mg Take 1 tablet by mouth every 8 (eight) hours as needed for Nausea and Vomiting (N/V). [facility] ibuprofen 600 mg tablet 11-16 00:00: 00 Yes [id number] 600mg Take 1 tablet by mouth every 6 (six) hours as needed for Pain (scale 4-6). [facility] ibuprofen (IBU) tablet 600 mg 12-03 18:45: 00 12-03 17:41 :00 No 600mg 600 mg, Oral, ONCE, 1 dose, Mon12/04/19 at 1345, TRINO [facility] albuterol 90 mcg/actuati on inhaler 06-03 00:00: 00 Yes 2{puff} Inhale 2 Puffs every 6 (six) hours as needed for Wheezing or Shortness of Breath. [facility] azithromyci n 250 mg tablet 06-03 00:00: 00 Yes 250mg Take 1 tablet by mouth SEE-INSTRU CTIONS. Take 500 mg day 1, then 250 mg days 2 to 5. [facility] sulfaSALAzi ne (AZULFIDINE ) 500 mg tablet 2014-09 00:00: 00 Yes 500mg Take 1 Tab by mouth 2 (two) times daily. [facility] ondansetron (ZOFRAN ODT) 4 mg disintegrat ing tablet 2014-09 00:00: 00 Yes [id number] 4mg Take 1 Tab by mouth as needed for Nausea and Vomiting (N/V). [facility] zolpidem (AMBIEN) 5 mg tablet 04-28 00:00: 00 Yes 5mg Take 1 Tab by mouth at bedtime as needed for Insomnia. [facility] acetaminoph en-codeine (TYLENOL #3) 300-30 mg tablet 04-13 00:00: 00 Yes 1{tbl} Take 1 Tab by mouth every 6 (six) hours as needed (as needed for severe pain). [facility] adalimumab (HUMIRA PEN) 40 mg/0.8 mL injection 04-13 00:00: 00 Yes 40mg inject 0.8 mL under the skin every 14 (fourteen) days. [facility] foLIC acid (FOLATE) 1 mg tablet 04-13 00:00: 00 Yes 1mg Take 1 Tab by mouth daily. [facility] Vital Signs Vital Name Observation Time Observation Value Comments S ource Systolic blood pressure 2019-12-04 17:06:00 140 mm[Hg] [facility] Diastolic blood pressure 2019-12-04 17:06:00 76 mm[Hg] [facility] Heart rate 2019-12-04 17:06:00 72 /min [facility] Body temperature 2019-12-04 17:06:00 36.94 [facility] Respiratory rate 2019-12-04 17:06:00 18 /min [facility] Body weight 2019-12-04 17:06:[address] [facility] Oxygen saturation in Arterial blood by Pulse oximetry 2019-12-04 17:06:00 98 /min [facility] Systolic blood pressure 2019-12-04 17:06:00 140 mm[Hg] [facility] Diastolic blood pressure 2019-12-04 17:06:00 76 mm[Hg] [facility] Heart rate 2019-12-04 17:06:00 72 /min [facility] Body temperature 2019-12-04 17:06:00 36.94 [facility] Respiratory rate 2019-12-04 17:06:00 18 /min [facility] Body weight 2019-12-04 17:06:[address] [facility] Oxygen saturation in Arterial blood by Pulse oximetry 2019-12-04 17:06:00 98 /min [facility] Procedures Procedure Date / Time Performed Performing Clinician Source VACCINATIONS - CONSENTS, ELIGIBILITY, HISTORY 2022-05-17 05:01:00 Doctor Unassigned, [employer] [facility] Encounters Start Date/Time End Date/Time Encounter Type Admission Type Attending Clinicians Care Facility Care Department Encounter ID Source 2022-05-17 00:00:00 2022-05-17 00:00:00 Orders Only Doctor Unassigned, [facility] 1.2.840.114 350.1.13.10 4.2.7.2.686 [id number] [facility] 2021-05-07 09:43:00 2021-05-07 10:22:00 Emergency AlvarezNolberto okeefe [facility] 1.2.840.114 350.1.13.10 4.2.7.2.686 [id number] 2021-05-07 09:29:00 2021-05-07 09:29:00 Emergency X [facility] ERT [id number] [facility] 2021-03-10 13:05:00 2021-03-10 14:24:00 Emergency Angelita Purvis [facility] [id number] 350.1.13.10 4.2.7.2.686 [id number] 2021-03-10 13:05:00 2021-03-10 13:05:00 Emergency X Angeliat PURVIS [facility] ERT [id number] [facility] 2020-11-16 15:16:00 2020-11-16 16:37:00 Emergency Angelita Purvis [facility] [id number] 350.1.13.10 4.2.7.2.686 [id number] 2020-11-16 15:16:00 2020-11-16 15:16:00 Emergency Angelita AMIN [facility] ERT [id number] [facility] 2020-11-16 00:00:00 2020-11-16 00:00:00 Orders Only Doctor Unassigned, [facility] 1.2.840.114 350.1.13.10 4.2.7.2.686 [id number] 2019-12-04 11:59:23 2019-12-04 13:08:00 Emergency Yara Quiroga [facility] 1.2.840.114 350.1.13.10 4.2.7.2.686 [id number] 2019-12-04 11:59:23 2019-12-04 13:08:00 Emergency Yara Quiroga [facility] 1.2.840.114 350.1.13.10 4.2.7.2.686 [id number] [facility] 2019-12-04 11:59:23 2019-12-04 11:59:23 Emergency YARA CHEN [facility] ERT [id number] [facility] Results Test Description Test Time Test Comments Results Resul t Comments Source - XR CHEST 1 V 2019-01-30 10:25:00 FAX: Wally Jamison [phone] [place]: EM St: REG Name: [facility] P[facility] : 1995 Age[facility]S: 23[facility] [address] [facility]: [id number] Loc: E.[place], [place] Phys: Wally Means [facility] [employer] [address] Acct: [id number] Dis Date: Status: REG ER PHONE #: [phone] Exam Date: 01/30/2019 0950 FAX #: [phone] Reason: cough EXAMS: CPT CODE: [id number] XR CHEST 1 V 35028 Chest Radiograph History: cough Comparison: December 04, [...] M.D. CC: Wally Means NP Technologist: AKASH Sharifrd Date/Time/By: 01/30/2019 (7748) : By: JaisonPMT PAGE 1 Signed Report FAX: Wally Jamison [phone] [place]: St: REG Name: DAVID PACKER [facility] : 1995 Age/S: 23/M [address] [facility] #: [id number] Loc: E.[place], [place] Phys: Wally Means [facility] [employer] [employer] [address] Acct: [id number] Dis Date: Status: REG ER PHONE #: [phone] Exam Date: 01/30/2019 0950 FAX #: [phone] Reason: cough EXAMS: CPT CODE: [id number] XR CHEST 1 V 10562 (Continued) Orig Print D/T: S: 01/30/2019 (4151) PAGE 2 Signed Report - XR CHEST 2 V 2018-12-04 10:27:00 FAX: Joan Sheehan NP [phone] [place]: St: REG Name: DAVID PACKER [facility] : 1995 Age/S: 23/M [address] [facility] [place] [employer] [facility] Unit #: [id number] [place]: [place]: [place] [id number] Acct: [id number] Dis Date: Status: REG ER PHONE #: [phone] Exam Date: 12/04/2018 1024 FAX #: [phone] Reason: cough EXAMS: CPT CODE: [id number] XR CHEST 2 V 94566 C3 TIME OF STUDY: 12/04/2018 9:35 AM REASON FOR EXAM: cough COMPARISON: None FINDINGS: PA and lateral upright views of the chest were obtained. Lungs: Normal lung volume. No mass, or consolidation. Normal pulmonary vascularity. Pleura: No pleural effusion or pneumothorax. Heart and Mediastinum: Normal cardiomediastinal silhouette and great vessels. Bones: Normal regional skeletal structures. IMPRESSION: 1. No acute cardiopulmonary process. at 1025 Reported and signed by: Jose Boles M.D. CC: Joan Sheehan NP Technologist: CHERI GENTILE Trncrystalrd Date/Time/By: 12/04/2018 (9474) : By: [email or web address] PAGE 1 Signed Report FAX: Joan Sheehan NP [phone] [place]: EM St: REG Name: DAVID PACKER [facility] : 1995 Age/S: 23/M [address] [facility] Unit #: [id number] Loc: [place], [place]: [place] [id number] Acct: [id number] Dis Date: Status: REG ER PHONE #: [phone] Exam Date: 12/04/2018 1024 FAX #: [phone] Reason: cough EXAMS: CPT CODE: [id number] XR CHEST 2 V 79487 (Continued) Orig Print D/T: S: 12/04/2018 (1030) PAGE 2 Signed Report Notes Date/Time Note Provider Source 2019-01-30 09:50:00 [id number]:5 0:00 [facility] ([facility] PROVIDER REPORTREPORT#:[id number] REPORT STATUS: SignedDATE:01/30/19 TIME: 0950 PATIENT: DAVID PACKER UNIT #: [id number]#: [id number] ROOM/BED:AGE: 23 SEX: M PCP PHYS: No Primary or Family PhysicianSERVICE AUTHOR: Wally Means NP * ALL edits or amendments must be made on the electronic/computer document * HPI-URI/Cough/Cold GeneralConfirmed Patient YesPatient Type Existing patientInitial Greet Date/Time 01/30/19 0946Assumed Care at Time 0946 PresentationChief Complaint Cough, non-productive, Nasal congestion, Runny nose, Upper resp infectionHx Obtained From PatientOnset Occurred One week agoSymptom Duration Since onsetProgression since Onset Gradually worseningContext of Onset Exposure, sick contacts Free Text HPI NotesFree Text HPI NotesPt is a 23 year old male who presents o the ED with a cc of nasal congestion, dry cough with expiratory wheezing x 10 days +. Denies fever, chest pain. Review of Systems ROS StatementsAll systems rev neg except as marked. Focused Review of SystemsConstitutionalDenies: Chills, Fatigue, Fever, Lethargy, Malaise, Recent wt loss, Weakness - generalized. EyesDenies: Blurred R, Blurred L, Eye pain R, Eye pain L, Photophobia, Redness R, Redness L. Ears/Nose/ThroatReports: Nasal congestion. Denies: Earache R, Earache L, Nose bleeding, Sinus problem, Sore throat. RespiratoryReports: Cough, non-productive, Cough, productive, Wheezing. Denies: Dyspnea onexertion, Hemoptysis, Parox nocturnal dyspnea, Pleuritic pain, Shortness of breath. GIDenies: Abdominal pain, Anorexia, Belching, Bloody/tarry stool, Constipation, Diarrhea, Dysphagia, Hematemesis, Hematochezia, Mucousy stool, Melena, Nausea, Rectal pain, Vomiting. SkinDenies: Abrasion, Abscess, Burn, Contusion, Diaphoresis, Erythema, Itching, Jaundice, Laceration, Rash, Swelling, Ulceration. Allergy/ImmunDenies: Allergic reaction, Anaphylaxis, Hives, Itching, Rhinorrhea, Sneezing. NeurologicDenies: Abnormal movement, Bladder dysfunction, Bowel dysfunction, Change LOC, Confusion, Dizziness, Focal weakness, Generalized weakness, Headache, Lightheaded, Numbness, Problem walking, Seizure, Shaking, Slurred speech, Spinning sensation, Syncope, Tingling, Unable to speak, Vision change. Past Medical History - AdultStated Complaint COUGHAllergiesCoded Allergies:No Known Allergies (11/28/18) Home MedicationsReported MedicationsNo Known Home Medications Review of Nursing Notes Rev avail, and agreePt reports no significant: Past medical history, Past surgical history, Family history, Social historyDrug Use Xanax, heroineSmoking status for patients 13 years old or older: Current every day smokerPack years (pk/d)*(yrs): 9Date last smoked: still smoking Physical Exam Vital SignsVital SignsFirst Documented: Result Date Time Pulse Ox 100 01/30 0943 B/P 125/77 01/30 0943 B/P Mean 93 01/30 0943 O2 Delivery Room air 01/30 943 Temp 36.9 01/30 943 Pulse 89 01/30 0943 Resp 01/30 Last Documented: Result Date Time Pulse Ox 100 01/30 0943 B/P 125/77 01/30 0943 B/P Mean 93 01/30 0943 O2 Delivery Room air 01/30 943 Temp 36.9 01/30 09 Pulse 89 01/30 0943 Resp 01/30 Review of Vital Signs Reviewed, Vital signs normal Focused PEGeneral/Const General/Const Awake, Alert, No acute distress, Well appearing, Well developed, Well hydrated, Well nourishedEyes Eyes Atraumatic, PERRLEars/Nose/Throat Pharynx/Tonsils/Uvula Pharyngeal erythema. MS Neck Neck Atraumatic, SuppleResp/Chest Respiratory/Chest Atraumatic Wheezing/Retractions Wheezing expiratory, Wheezing mild. Cardiovascular Cardiovascular Heart rate NL, Regular rhythm, Heart sounds NLAbdomen/GI Abdomen/GI Atraumatic, Soft, Non-tenderSkin Skin Atraumatic, Color NL, No rash, Warm, Dry, Intact, Turgor NL, No swellingNeurologic Neurologic Oriented X3, Speech NL Interpretation Diagnostics Lab Results InterpretationResultsRecent Impressions:RADIOLOGY - XR CHEST 1 V 01/30 945 Report Impression - Status: SIGNED Entered: 01/30/2019 1028 IMPRESSION: There is no radiographic evidence of acute cardiopulmonary disease. Impression By: Jerry - Skyler Cooper M.D. Imaging StatementRadiographic studies reviewed and considered in the medical decision-making. Re-Evaluation MDM Re-Evaluation/ProgressRe-Evaluation/Progress Time of Re-Eval 1037 Re-Eval Status Improved Eval Following Treatment Pt. feels better URI/Flu Adult MDM NoteThe patient is now resting comfortably, is alert and in no distress. The patienthas a normal mental status and is neurologically intact. The patient appears well and is able to tolerate food or fluid by mouth, and there is no significantdehydration. There is no respiratory distress and no signs of systemic toxicity.The history, exam, diagnostic testing (if any) and current condition do not demonstrate an infectious process such as meningitis, severe pneumonia, retropharyngeal abscess, epiglottitis, sepsis or other serious bacterial infection requiring further testing, treatment, consultation, or admission at this time. The vital signs have been stable. The patient's condition is stable and appropriate for discharge. The patient will pursue further outpatient evaluation with the primary care physician or other designated or consulting physician as indicated in the discharge instructions. ED CourseMedication(s) OrderedMedication(s) Ordered:Autonomic Drugs Sig/Lizzette Start time Last Medication Dose Route Stop Time Status Admin Albuterol Sulfate 2.5 MG Q15M 01/30 1000 DC 01/30 NEB 01/30 1016 1015 Hormones And Synthetic Substit Sig/Lizzette Start time Last Medication Dose Route Stop Time Status Admin Prednisone 50 MG X1ED STA 01/30 0950 DC 01/30 PO 01/30 0951 0959 Patient Discharge Departure Vital Signs/ConditionVital SignsFirst Documented: Result Date Time Pulse Ox 100 01/30 0943 B/P 125/77 01/30 0943 B/P Mean 93 01/30 0943 O2 Delivery Room air 01/30 0943 Temp 36.9 / 0943 Pulse 89 / 0943 Resp 20 / 0943 Last Documented: Result Date Time Pulse Ox 100 / 0943 B/P 125/77 / 0943 B/P Mean 93 / 0943 O2 Delivery Room air 01/30 0943 Temp 36.9 / 0943 Pulse 89 / 0943 Resp 20 / 0943 All vital signs available at the time of this entry have been reviewed. Condition Stable Clinical ImpressionClinical ImpressionPrimary Impression: Acute bronchitisTime of Impression 1037 Disposition DecisionDischarge )( Discharged to Home Yes )( Time 1037 )( Date 01/30/19 Discharge/Care PlanCounseled Regarding Diagnosis, Imaging studies, Prescriptions, Need for follow-up, When to return to EDPrescriptionszithromax / tesselon perles / prednisone / albuterol inhaler - see rxPrescriptions Reviewed Risks, Benefits, Alternative treatment Discharge NoteI have spoken with the patient and/or caregivers. I have explained the patient'scondition, diagnoses and treatment plan based on the information available to meat this time. I have answered the patient's and/or caregiver's questions and addressed any concerns. The patient and/or caregivers have as good an understanding of the patient's diagnosis, condition and treatment plan as can beexpected at this point. The vital signs have been stable. The patient's condition is stable and appropriate for discharge from the emergency department. The patient will pursue further outpatient evaluation with the primary care physician or other designated or consulting physician as outlined in the discharge instructions. The patient and/or caregivers are agreeable to this planof care and follow-up instructions have been explained in detail. The patient and/or caregivers have received these instructions in written format and have expressed an understanding of the discharge instructions. The patient and/or caregivers are aware that any significant change in condition or worsening of symptoms should prompt an immediate return to this or the closest emergency department or a call to 911. Quality MeasuresAcute Bronchitis Ab System Ab for med reason at 1505RPT #:[id number] OF REPORTEDEmergency department [id number]:50:00E.[id number] ilable for patient [id number]:06:07 [facility] 2019-01-30 09:50:00 [id number]:5 0:00 [facility] ([facility] PROVIDER REPORTREPORT#:[id number] REPORT STATUS: SignedDATE:01/30/19 TIME: 0950 PATIENT: DAVID PACKER UNIT #: [id number]#: [id number] ROOM/BED:AGE: 23 SEX: M PCP PHYS: No Primary or Family PhysicianSERVICE AUTHOR: Wally Means NP * ALL edits or amendments must be made on the electronic/computer document * Wally Means 01/30/19 0950:HPI-URI/Cough/Cold GeneralConfirmed Patient YesPatient Type Existing patientAssumed Care at Time 0946 PresentationChief Complaint Cough, non-productive, Nasal congestion, Runny nose, Upper resp infectionHx Obtained From PatientOnset Occurred One week agoSymptom Duration Since onsetProgression since Onset Gradually worseningContext of Onset Exposure, sick contacts Free Text HPI NotesFree Text HPI NotesPt is a 23 year old male who presents o the ED with a cc of nasal congestion, dry cough with expiratory wheezing x 10 days +. Denies fever, chest pain. Review of Systems ROS StatementsAll systems rev neg except as marked. Focused Review of SystemsConstitutionalDenies: Chills, Fatigue, Fever, Lethargy, Malaise, Recent wt loss, Weakness - generalized. EyesDenies: Blurred R, Blurred L, Eye pain R, Eye pain L, Photophobia, Redness R, Redness L. Ears/Nose/ThroatReports: Nasal congestion. Denies: Earache R, Earache L, Nose bleeding, Sinus problem, Sore throat. RespiratoryReports: Cough, non-productive, Cough, productive, Wheezing. Denies: Dyspnea onexertion, Hemoptysis, Parox nocturnal dyspnea, Pleuritic pain, Shortness of breath. GIDenies: Abdominal pain, Anorexia, Belching, Bloody/tarry stool, Constipation, Diarrhea, Dysphagia, Hematemesis, Hematochezia, Mucousy stool, Melena, Nausea, Rectal pain, Vomiting. SkinDenies: Abrasion, Abscess, Burn, Contusion, Diaphoresis, Erythema, Itching, Jaundice, Laceration, Rash, Swelling, Ulceration. Allergy/ImmunDenies: Allergic reaction, Anaphylaxis, Hives, Itching, Rhinorrhea, Sneezing. NeurologicDenies: Abnormal movement, Bladder dysfunction, Bowel dysfunction, Change LOC, Confusion, Dizziness, Focal weakness, Generalized weakness, Headache, Lightheaded, Numbness, Problem walking, Seizure, Shaking, Slurred speech, Spinning sensation, Syncope, Tingling, Unable to speak, Vision change. Past Medical History - AdultStated Complaint COUGHAllergiesCoded Allergies:No Known Allergies (11/28/18) Home MedicationsReported MedicationsNo Known Home Medications Review of Nursing Notes Rev avail, and agreePt reports no significant: Past medical history, Past surgical history, Family history, Social historyDrug Use Xanax, heroineSmoking status for patients 13 years old or older: Current every day smokerPack years (pk/d)*(yrs): 9Date last smoked: still smoking Physical Exam Vital SignsVital SignsFirst Documented: Result Date Time Pulse Ox 100 01/30 0943 B/P 125/77 01/30 0943 B/P Mean 93 01/30 0943 O2 Delivery Room air 01/30 943 Temp 36.9 01/30 0943 Pulse 89 01/30 0943 Resp 20 01/30 943 Last Documented: Result Date Time Pulse Ox 100 01/30 0943 B/P 125/77 01/30 0943 B/P Mean 93 01/30 0943 O2 Delivery Room air 01/30 943 Temp 36.9 01/30 0943 Pulse 89 01/30 0943 Resp 01/30 Review of Vital Signs Reviewed, Vital signs normal Focused PEGeneral/Const General/Const Awake, Alert, No acute distress, Well appearing, Well developed, Well hydrated, Well nourishedEyes Eyes Atraumatic, PERRLEars/Nose/Throat Pharynx/Tonsils/Uvula Pharyngeal erythema. MS Neck Neck Atraumatic, SuppleResp/Chest Respiratory/Chest Atraumatic Wheezing/Retractions Wheezing expiratory, Wheezing mild. Cardiovascular Cardiovascular Heart rate NL, Regular rhythm, Heart sounds NLAbdomen/GI Abdomen/GI Atraumatic, Soft, Non-tenderSkin Skin Atraumatic, Color NL, No rash, Warm, Dry, Intact, Turgor NL, No swellingNeurologic Neurologic Oriented X3, Speech NL Interpretation Diagnostics Lab Results InterpretationResultsRecent Impressions:RADIOLOGY - XR CHEST 1 V 01/30 0945 Report Impression - Status: SIGNED Entered: 01/30/2019 1028 IMPRESSION: There is no radiographic evidence of acute cardiopulmonary disease. Impression By: Jerry Cooper M.D. Imaging StatementRadiographic studies reviewed and considered in the medical decision-making. Re-Evaluation MDM Re-Evaluation/ProgressRe-Evaluation/Progress Time of Re-Eval 1037 Re-Eval Status Improved Eval Following Treatment Pt. feels better URI/Flu Adult MDM NoteThe patient is now resting comfortably, is alert and in no distress. The patienthas a normal mental status and is neurologically intact. The patient appears well and is able to tolerate food or fluid by mouth, and there is no significantdehydration. There is no respiratory distress and no signs of systemic toxicity.The history, exam, diagnostic testing (if any) and current condition do not demonstrate an infectious process such as meningitis, severe pneumonia, retropharyngeal abscess, epiglottitis, sepsis or other serious bacterial infection requiring further testing, treatment, consultation, or admission at this time. The vital signs have been stable. The patient's condition is stable and appropriate for discharge. The patient will pursue further outpatient evaluation with the primary care physician or other designated or consulting physician as indicated in the discharge instructions. ED CourseMedication(s) OrderedMedication(s) Ordered:Autonomic Drugs Sig/Lizzette Start time Last Medication Dose Route Stop Time Status Admin Albuterol Sulfate 2.5 MG Q15M 01/30 1000 DC 01/30 NEB 01/30 1016 1015 Hormones And Synthetic Substit Sig/Lizzette Start time Last Medication Dose Route Stop Time Status Admin Prednisone 50 MG X1ED STA 01/30 0950 DC 01/30 PO 01/30 0951 0959 Patient Discharge Departure Vital Signs/ConditionVital SignsFirst Documented: Result Date Time Pulse Ox 100 01/30 0943 B/P 125/77 01/30 0943 B/P Mean 93 01/30 0943 O2 Delivery Room air 01/30 0943 Temp 36.9 / 0943 Pulse 89 01/30 0943 Resp 20 01/30 0943 Last Documented: Result Date Time Pulse Ox 100 01/30 0943 B/P 125/77 01/30 0943 B/P Mean 93 01/30 0943 O2 Delivery Room air 01/30 0943 Temp 36.9 01/30 0943 Pulse 89 01/30 0943 Resp 20 01/30 0943 All vital signs available at the time of this entry have been reviewed. Condition Stable Clinical ImpressionClinical ImpressionPrimary Impression: Acute bronchitisTime of Impression 1037 Disposition DecisionDischarge )( Discharged to Home Yes )( Time 1037 )( Date 01/30/19 Discharge/Care PlanCounseled Regarding Diagnosis, Imaging studies, Prescriptions, Need for follow-up, When to return to EDPrescriptionszithromax / tesselon perles / prednisone / albuterol inhaler - see rxPrescriptions Reviewed Risks, Benefits, Alternative treatment Discharge NoteI have spoken with the patient and/or caregivers. I have explained the patient'scondition, diagnoses and treatment plan based on the information available to meat this time. I have answered the patient's and/or caregiver's questions and addressed any concerns. The patient and/or caregivers have as good an understanding of the patient's diagnosis, condition and treatment plan as can beexpected at this point. The vital signs have been stable. The patient's condition is stable and appropriate for discharge from the emergency department. The patient will pursue further outpatient evaluation with the primary care physician or other designated or consulting physician as outlined in the discharge instructions. The patient and/or caregivers are agreeable to this planof care and follow-up instructions have been explained in detail. The patient and/or caregivers have received these instructions in written format and have expressed an understanding of the discharge instructions. The patient and/or caregivers are aware that any significant change in condition or worsening of symptoms should prompt an immediate return to this or the closest emergency department or a call to 911. Quality MeasuresAcute Bronchitis Ab System Ab for med reason Nanci Barr 01/30/19 1540:HPI-URI/Cough/Cold GeneralInitial Greet Date/Time 01/30/19 0946 Physical Exam Vital SignsVital Signs Interpretation Diagnostics Lab Results InterpretationResults Re-Evaluation MDM ED CourseMedication(s) Ordered Patient Discharge Departure Vital Signs/ConditionVital Signs Supervising Physician Note MidLv Saw Pt AloneI have reviewed the PA/HEALTH UNIT SUPERVISOR's note and plan of care. I was available for consultation as needed at all times during the patient's visit in the emergency department. I agree with the clinical impression, plan and disposition. at 1505 at 1543RPT #:[id number] OF REPORTEDEmerbaptist health medical center department [id number]:50:00E.[id number] ilable for patient [id number]:44:01 [facility] 2018-12-04 10:40:00 [id number]:4 0:00 [facility] ([facility] PROVIDER REPORTREPORT#:[id number] REPORT STATUS: SignedDATE:12/04/18 TIME: 1040 PATIENT: DAVID PACKER UNIT #: [id number]#: [id number] ROOM/BED:AGE: 23 SEX: M PCP PHYS: No Primary or Family PhysicianSERVICE AUTHOR: Joan Sheehan HEALTH UNIT SUPERVISOR * ALL edits or amendments must be made on the electronic/computer document * HPI-URI/Cough/Cold GeneralConfirmed Patient YesPatient Type Existing patientInitial Greet Date/Time 12/04/18 0909Assumed Care at Time 0914 PresentationChief Complaint Cough, productive, Fever, Nasal congestion, Sore throat, Upper resp infectionHx Obtained From PatientOnset Occurred Days agoSymptom Duration Since onset, ConstantProgression since Onset UnchangedSeverity: Onset Pain level 2 out of 10Severity: Current Pain level 2 out of 10 ContextSimilar Sx Previous Yes Free Text HPI NotesFree Text HPI NotesPatient is a 23 year old that presents from [facility] with Cough,congestion,fever,chill.body aches and sore throat X 4 days. Patient states thereare several others at [facility] with same. Patient seen in room 2 then is awaiting [facility]. Orders placed Review of Systems ROS StatementsAll systems rev neg except as marked.Complete sys rev neg except as marked. Focused Review of SystemsConstitutionalReports: Chills, Fever. Denies: Fatigue, Lethargy, Malaise, Recent wt loss, Weakness - generalized. EyesDenies: Blurred bilat, Diplopia, Discharge bilat, Eye pain bilat, Photophobia, Redness bilat. Ears/Nose/ThroatReports: Nasal congestion, Sore throat. Denies: Ear drainage bilat, Ear ringingbilat, Earache bilat. RespiratoryReports: Cough, productive. Denies: Shortness of breath, Wheezing. GIDenies: Abdominal pain, Constipation, Diarrhea, Nausea, Vomiting. SkinDenies: Abrasion, Contusion, Swelling. Allergy/ImmunDenies: Allergic reaction, Hives, Itching. NeurologicDenies: Abnormal movement, Change LOC, Confusion, Dizziness, Headache, Lightheaded, Slurred speech, Syncope. Additional Review of SystemsCardiovascularDenies: Chest pain, Dyspnea on exertion, Palpitations, Syncope. MusculoskeletalReports: Myalgia. Denies: Back pain, Lumbar pain, Neck pain. Past Medical History - AdultStated Complaint COUGH CONGETSIONAllergiesCoded Allergies:No Known Allergies (11/28/18) Home MedicationsReported MedicationsNo Known Home Medications Drug Use Xanax, heroineSmoking status for patients 13 years old or older: Current every day smoker Physical Exam Vital SignsVital SignsFirst Documented: Result Date Time Pulse Ox 99 12/04 0839 B/P 130/67 12/04 0839 B/P Mean 88 12/04 0839 O2 Delivery Room air 12/04 0839 Temp 36.8 12/04 0839 Pulse 95 12/04 0839 Resp 18 12/04 0839 Last Documented: Result Date Time Pulse Ox 100 12/04 1126 O2 Delivery Room air 12/04 1126 Temp 36.7 12/04 1126 Pulse 89 12/04 1126 Resp 18 12/04 1126 B/P 130/67 12/04 0839 B/P Mean 88 12/04 0839 Review of Vital Signs Reviewed, Vital signs normal Focused PEGeneral/Const General/Const Awake, Alert, No acute distress, Well appearing, Well developed, Well hydrated, Well nourished, Cooperative, Not toxic appearingEyes Eyes Atraumatic, PERRL, No periorbital redness, No periorbital swelling, No photophobiaEars/Nose/Throat Ears/Nose/Throat Atraumatic, Airway patent, Mucous membranes moist Pharynx/Tonsils/Uvula Pharyngeal erythema. Negative: Tonsillar erythema R, Tonsillar erythema L, Tonsillar exudate R, Tonsillar exudate L, Tonsillar swelling R, Tonsillar swelling L, Peritonsil abscess R, Peritonsil abscess L, Trismus present, Epiglottis enlarged, Epiglottis erythematous, Uvula deviated R, Uvula deviated L, Uvula edematous, Uvula enlarged, Uvula erythematous. Right Ear/Mastoid Negative: Tympanic membrane red, Tympanic membrane bulging, Tympanic memb perforated, Tympanic memb retracted, Bullous myringitis, Fluid behind TM clear, Fluid behind TM purulent, External canal red, External furnace door tender, Ext canal foreign body, Discharge purulent, Discharge bloody, Ext canal cerumen impact, Mastoid area red, Mastoid area tender, Gila red, Gila tender. Left Ear/Mastoid Negative: Tympanic membrane red, Tympanic membrane bulging, Tympanic memb perforated, Tympanic memb retracted, Bullous myringitis, Fluid behind TM clear, Fluid behind TM purulent, External canal red, External furnace door tender, Ext canal foreign body, Discharge purulent, Discharge bloody, Ext canal cerumen impact, Mastoid area red, Mastoid area tender, Gila red, Gila tender. MS Neck Neck Atraumatic, Supple, No meningismus, Full range of motion, No adenopathyResp/Chest Respiratory/Chest Atraumatic Wheezing/Retractions Wheezing expiratory, Wheezing mild. Negative: Wheeze insp/exp diffuse, Wheezing inspiratory, Wheeze localized, Wheezing moderate, Wheezing severe, Prolonged exp phase, Retractions mild, Retractions moderate, Retractions severe,Accessory muscle use mild, Accessory muscle use mod, Accessory muscle use sev, Intercostal retractions, Supracostal retractions, Suprasternal retractions, Nasal flaring. Cardiovascular Cardiovascular Heart rate NL, Regular rhythm, Heart sounds NL, Cap refill notdelayed, Peripheral circulation NLAbdomen/GI Abdomen/GI Atraumatic, Soft, Non-tender, BS normoactive, No distentionSkin Skin Atraumatic, Color NL, No rash, WarmNeurologic Neurologic Oriented X3, Speech NL, No motor deficits, No sensory deficits Additional PEMS Head Head Atraumatic, Normocephalic Interpretation Diagnostics Lab Results InterpretationResultsRecent Impressions:RADIOLOGY - XR CHEST 2 V 12/04 1020 Report Impression - Status: SIGNED Entered: 12/04/2018 1030 IMPRESSION: 1. No acute cardiopulmonary process.Impression By: Dea Boles M.D. Lab StatementLaboratory studies reviewed and considered in the medical decision-making. Imaging StatementRadiographic studies reviewed and considered in the medical decision-making. Point of Care TestingMicro Interpretation Influenza rapid - neg, Strep rapid - negPulse Oximetry Pulse Ox % 99 On: Room air Re-Evaluation MDM Free Text MDM NotesFree Text MDM NotesPatient feeling better after breathing treatments, has taked Z-pk in past, all questions answered. ED CourseMedication(s) OrderedMedication(s) Ordered:Autonomic Drugs Sig/Lizzette Start time Last Medication Dose Route Stop Time Status Admin Albuterol/Ipratropium 6 ML X1ED STA 12/04 0934 DC 12/04 NEB 12/04 0835 1058 Hormones And Synthetic Substit Sig/Lizzette Start time Last Medication Dose Route Stop Time Status Admin Dexamethasone Sodium 10 MG X1ED STA 12/04 0835 DC 12/04 Phosphate IM 12/04 0936 1058 Differential DiagnosisDifferential Diagnosis Allergic rhinitis, Bronchitis, Influenza, Laryngitis, Pharyngitis, streptococca, Pharyngitis, viral, Pneumonia, Sinusitis, Upper resp infection, Viral syndrome Patient Discharge Departure Vital Signs/ConditionVital SignsFirst Documented: Result Date Time Pulse Ox 99 12/04 0839 B/P 130/67 12/04 0839 B/P Mean 88 12/04 0839 O2 Delivery Room air 12/04 0839 Temp 36.8 12/04 0839 Pulse 95 12/04 0839 Resp 18 12/04 0839 Last Documented: Result Date Time Pulse Ox 100 12/04 1126 O2 Delivery Room air 12/04 1126 Temp 36.7 12/04 1126 Pulse 89 12/04 1126 Resp 18 12/04 1126 B/P 130/67 12/04 0839 B/P Mean 88 12/04 0839 All vital signs available at the time of this entry have been reviewed. Clinical ImpressionClinical ImpressionPrimary Impression: CoughSecondary Impressions: Fever, Upper respiratory infectionTime of Impression 1041 Disposition DecisionDischarge )( Discharged to Home Yes )( Time 1041 )( Date 12/04/18 Discharge/Care PlanCounseled Regarding Diagnosis, Imaging studies, Prescriptions, Need for follow-up, Smoking cessation, When to return to EDPrescriptionsz-pkPrescriptions Reviewed Risks, Benefits, Alternative treatment Discharge NoteI have spoken with the patient and/or caregivers. I have explained the patient'scondition, diagnoses and treatment plan based on the information available to meat this time. I have answered the patient's and/or caregiver's questions and addressed any concerns. The patient and/or caregivers have as good an understanding of the patient's diagnosis, condition and treatment plan as can beexpected at this point. The vital signs have been stable. The patient's condition is stable and appropriate for discharge from the emergency department. The patient will pursue further outpatient evaluation with the primary care physician or other designated or consulting physician as outlined in the discharge instructions. The patient and/or caregivers are agreeable to this planof care and follow-up instructions have been explained in detail. The patient and/or caregivers have received these instructions in written format and have expressed an understanding of the discharge instructions. The patient and/or caregivers are aware that any significant change in condition or worsening of symptoms should prompt an immediate return to this or the closest emergency department or a call to 911. at 1424RPT #:[id number] OF REPORTEDEmergen department [id number]:40:00E.[id number] ilable for patient [id number]:24:05 [facility] 2018-12-04 10:40:00 [id number]:4 0:00 [facility] ([facility] PROVIDER REPORTREPORT#:[id number] REPORT STATUS: SignedDATE:12/04/18 TIME: 1040 PATIENT: DAVID PACKER UNIT #: [id number]#: [id number] ROOM/BED:AGE: 23 SEX: M PCP PHYS: No Primary or Family PhysicianSERVICE AUTHOR: Joan Sheehan NP * ALL edits or amendments must be made on the electronic/computer document * Joan Sheehan 12/04/18 1040:HPI-URI/Cough/Cold GeneralConfirmed Patient YesPatient Type Existing patientAssumed Care at Time 0914 PresentationChief Complaint Cough, productive, Fever, Nasal congestion, Sore throat, Upper resp infectionHx Obtained From PatientOnset Occurred Days agoSymptom Duration Since onset, ConstantProgression since Onset UnchangedSeverity: Onset Pain level 2 out of 10Severity: Current Pain level 2 out of 10 ContextSimilar Sx Previous Yes Free Text HPI NotesFree Text HPI NotesPatient is a 23 year old that presents from [facility] with Cough,congestion,fever,chill.body aches and sore throat X 4 days. Patient states thereare several others at [facility] sick with same. Patient seen in room 2 then is awaiting room [facility]. Orders placed Review of Systems ROS StatementsAll systems rev neg except as marked.Complete sys rev neg except as marked. Focused Review of SystemsConstitutionalReports: Chills, Fever. Denies: Fatigue, Lethargy, Malaise, Recent wt loss, Weakness - generalized. EyesDenies: Blurred bilat, Diplopia, Discharge bilat, Eye pain bilat, Photophobia, Redness bilat. Ears/Nose/ThroatReports: Nasal congestion, Sore throat. Denies: Ear drainage bilat, Ear ringingbilat, Earache bilat. RespiratoryReports: Cough, productive. Denies: Shortness of breath, Wheezing. GIDenies: Abdominal pain, Constipation, Diarrhea, Nausea, Vomiting. SkinDenies: Abrasion, Contusion, Swelling. Allergy/ImmunDenies: Allergic reaction, Hives, Itching. NeurologicDenies: Abnormal movement, Change LOC, Confusion, Dizziness, Headache, Lightheaded, Slurred speech, Syncope. Additional Review of SystemsCardiovascularDenies: Chest pain, Dyspnea on exertion, Palpitations, Syncope. MusculoskeletalReports: Myalgia. Denies: Back pain, Lumbar pain, Neck pain. Past Medical History - AdultStated Complaint COUGH CONGETSIONAllergiesCoded Allergies:No Known Allergies (11/28/18) Home MedicationsReported MedicationsNo Known Home Medications Drug Use Xanax, heroineSmoking status for patients 13 years old or older: Current every day smoker Physical Exam Vital SignsVital SignsFirst Documented: Result Date Time Pulse Ox 99 12/04 0839 B/P 130/67 12/04 0839 B/P Mean 88 12/04 0839 O2 Delivery Room air 12/04 0839 Temp 36.8 12/04 0839 Pulse 95 12/04 0839 Resp 18 12/04 0839 Last Documented: Result Date Time Pulse Ox 100 12/04 112 O2 Delivery Room air 12/04 1126 Temp 36.7 12/04 1126 Pulse 89 12/04 1126 Resp 18 12/04 1126 B/P 130/67 12/04 0839 B/P Mean 88 12/04 0839 Review of Vital Signs Reviewed, Vital signs normal Focused PEGeneral/Const General/Const Awake, Alert, No acute distress, Well appearing, Well developed, Well hydrated, Well nourished, Cooperative, Not toxic appearingEyes Eyes Atraumatic, PERRL, No periorbital redness, No periorbital swelling, No photophobiaEars/Nose/Throat Ears/Nose/Throat Atraumatic, Airway patent, Mucous membranes moist Pharynx/Tonsils/Uvula Pharyngeal erythema. Negative: Tonsillar erythema R, Tonsillar erythema L, Tonsillar exudate R, Tonsillar exudate L, Tonsillar swelling R, Tonsillar swelling L, Peritonsil abscess R, Peritonsil abscess L, Trismus present, Epiglottis enlarged, Epiglottis erythematous, Uvula deviated R, Uvula deviated L, Uvula edematous, Uvula enlarged, Uvula erythematous. Right Ear/Mastoid Negative: Tympanic membrane red, Tympanic membrane bulging, Tympanic memb perforated, Tympanic memb retracted, Bullous myringitis, Fluid behind TM clear, Fluid behind TM purulent, External canal red, External furnace door tender, Ext canal foreign body, Discharge purulent, Discharge bloody, Ext canal cerumen impact, Mastoid area red, Mastoid area tender, Gila red, Gila tender. Left Ear/Mastoid Negative: Tympanic membrane red, Tympanic membrane bulging, Tympanic memb perforated, Tympanic memb retracted, Bullous myringitis, Fluid behind TM clear, Fluid behind TM purulent, External canal red, External furnace door tender, Ext canal foreign body, Discharge purulent, Discharge bloody, Ext canal cerumen impact, Mastoid area red, Mastoid area tender, Gila red, Gila tender. MS Neck Neck Atraumatic, Supple, No meningismus, Full range of motion, No adenopathyResp/Chest Respiratory/Chest Atraumatic Wheezing/Retractions Wheezing expiratory, Wheezing mild. Negative: Wheeze insp/exp diffuse, Wheezing inspiratory, Wheeze localized, Wheezing moderate, Wheezing severe, Prolonged exp phase, Retractions mild, Retractions moderate, Retractions severe,Accessory muscle use mild, Accessory muscle use mod, Accessory muscle use sev, Intercostal retractions, Supracostal retractions, Suprasternal retractions, Nasal flaring. Cardiovascular Cardiovascular Heart rate NL, Regular rhythm, Heart sounds NL, Cap refill notdelayed, Peripheral circulation NLAbdomen/GI Abdomen/GI Atraumatic, Soft, Non-tender, BS normoactive, No distentionSkin Skin Atraumatic, Color NL, No rash, WarmNeurologic Neurologic Oriented X3, Speech NL, No motor deficits, No sensory deficits Additional PEMS Head Head Atraumatic, Normocephalic Interpretation Diagnostics Lab Results InterpretationResultsRecent Impressions:RADIOLOGY - XR CHEST 2 V 12/04 1020 Report Impression - Status: SIGNED Entered: 12/04/2018 1030 IMPRESSION: 1. No acute cardiopulmonary process.Impression By: Dea Boles M.D. Lab StatementLaboratory studies reviewed and considered in the medical decision-making. Imaging StatementRadiographic studies reviewed and considered in the medical decision-making. Point of Care TestingMicro Interpretation Influenza rapid - neg, Strep rapid - negPulse Oximetry Pulse Ox % 99 On: Room air Re-Evaluation MDM Free Text MDM NotesFree Text MDM NotesPatient feeling better after breathing treatments, has taked Z-pk in past, all questions answered. ED CourseMedication(s) OrderedMedication(s) Ordered:Autonomic Drugs Sig/Lizzette Start time Last Medication Dose Route Stop Time Status Admin Albuterol/Ipratropium 6 ML X1ED STA 12/04 0834 DC 12/04 NEB 12/04 0835 1058 Hormones And Synthetic Substit Sig/Lizzette Start time Last Medication Dose Route Stop Time Status Admin Dexamethasone Sodium 10 MG X1ED STA 12/04 934 DC 12/04 Phosphate IM 12/04 0836 1058 Differential DiagnosisDifferential Diagnosis Allergic rhinitis, Bronchitis, Influenza, Laryngitis, Pharyngitis, streptococca, Pharyngitis, viral, Pneumonia, Sinusitis, Upper resp infection, Viral syndrome Patient Discharge Departure Vital Signs/ConditionVital SignsFirst Documented: Result Date Time Pulse Ox 99 12/04 0839 B/P 130/67 12/04 0839 B/P Mean 88 12/04 0839 O2 Delivery Room air 12/04 0839 Temp 36.8 12/04 0839 Pulse 95 12/04 0839 Resp 18 12/04 0839 Last Documented: Result Date Time Pulse Ox 100 12/04 1126 O2 Delivery Room air 12/04 1126 Temp 36.7 12/04 1126 Pulse 89 12/04 1126 Resp 18 12/04 1126 B/P 130/67 12/04 0839 B/P Mean 88 12/04 0839 All vital signs available at the time of this entry have been reviewed. Clinical ImpressionClinical ImpressionPrimary Impression: CoughSecondary Impressions: Fever, Upper respiratory infectionTime of Impression 1041 Disposition DecisionDischarge )( Discharged to Home Yes )( Time 1041 )( Date 12/04/18 Discharge/Care PlanCounseled Regarding Diagnosis, Imaging studies, Prescriptions, Need for follow-up, Smoking cessation, When to return to EDPrescriptionsz-pkPrescriptions Reviewed Risks, Benefits, Alternative treatment Discharge NoteI have spoken with the patient and/or caregivers. I have explained the patient'scondition, diagnoses and treatment plan based on the information available to meat this time. I have answered the patient's and/or caregiver's questions and addressed any concerns. The patient and/or caregivers have as good an understanding of the patient's diagnosis, condition and treatment plan as can beexpected at this point. The vital signs have been stable. The patient's condition is stable and appropriate for discharge from the emergency department. The patient will pursue further outpatient evaluation with the primary care physician or other designated or consulting physician as outlined in the discharge instructions. The patient and/or caregivers are agreeable to this planof care and follow-up instructions have been explained in detail. The patient and/or caregivers have received these instructions in written format and have expressed an understanding of the discharge instructions. The patient and/or caregivers are aware that any significant change in condition or worsening of symptoms should prompt an immediate return to this or the closest emergency department or a call to 911. Daquan Lr 12/05/18 1220:HPI-URI/Cough/Cold GeneralInitial Greet Date/Time 12/04/18 0909 Physical Exam Vital SignsVital Signs Interpretation Diagnostics Lab Results InterpretationResults Patient Discharge Departure Vital Signs/ConditionVital Signs Supervising Physician Note MidLv Saw Pt AloneI have reviewed the PA/HEALTH UNIT SUPERVISOR's note and plan of care. I was available for consultation as needed at all times during the patient's visit in the emergency department. I agree with the clinical impression, plan and disposition. at 1424 at 1220RPT #:[id number] OF REPORTEDEmerbaptist health medical center department [id number]:40:00E.[id number] ilable for patient [id number]:20:25 [facility] 2018-11-28 07:49:00 [id number]:4 9:00 [facility] ([facility] PROVIDER REPORTREPORT#:[id number] REPORT STATUS: SignedDATE:11/28/18 TIME: 0749 PATIENT: DAVID PACKER UNIT #: [id number]#: [id number] ROOM/BED:AGE: 23 SEX: M PCP PHYS: No Primary or Family PhysicianSERVICE AUTHOR: Eulalio Young MD * ALL edits or amendments must be made on the electronic/computer document * OVD-Lnn-Ekzs Illness GeneralConfirmed Patient YesInitial Greet Date/Time 11/28/18 0744 PresentationChief Complaint FLU-LIKE SXHx Obtained From PatientOnset Occurred One week agoSymptom Duration Since onsetProgression since Onset UnchangedSeverity: Onset ModerateSeverity: Current ModerateAssociated withReports: Fever, Headache. Denies: Shortness of breath. Associated Other productive cough, runny nose, body aches, sore throat, congestionExacerbated by NothingRelieved by Nothing Free Text HPI NotesFree Text HPI Notes23 y/o M presents to the ED from [facility] with c/o Flu-like Sx onset one week ago. Associated Sx include fever, productive cough with yellow phlegm, runny nose, congestion, sore throat, TATUM, and body aches. Denies SOB. Pt states he did not take OTC meds for cough or congestion, but has taken tylenol last night for body aches with relief. 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 Portions of this section were scribed by uY Markham on 11/28/18 at 0955 Review of Systems ROS StatementsAll systems rev neg except as marked. Focused Review of SystemsConstitutionalReports: Fever. Denies: Chills. EyesDenies: Redness bilat, Swelling bilat. Ears/Nose/ThroatReports: Nasal congestion, Sore throat. RespiratoryReports: Cough, productive (YELLOW PHLEGM). Denies: Shortness of breath, Wheezing. CardiovascularDenies: Chest pain, Syncope. GIDenies: Abdominal pain, Nausea, Vomiting. MusculoskeletalReports: Myalgia. Denies: Extremity swelling, Joint swelling. HematologicDenies: Bleeding, Bruising. SkinDenies: Rash, Swelling. NeurologicReports: Headache. Denies: Change LOC, Syncope. Free Text ROS NotesFree Text ROS NotesReports Runny nose Portions of this section were scribed by Yu Markham on 11/28/18 at 0805 Past Medical History - AdultStated Complaint FLSAllergiesCoded Allergies:No Known Allergies (11/28/18) Home MedicationsReported MedicationsNo Known Home Medications Review of Nursing Notes Rev avail, and agreePt reports no significant: Past medical history, Past surgical historyDrug Use Xanax, heroineSmoking status for patients 13 years old or older: Current every day smoker Portions of this section were scribed by Yu Markham on 11/28/18 at 0755 Physical Exam Vital SignsVital SignsFirst Documented: Result Date Time Pulse Ox 99 11/28 0737 B/P 122/70 11/28 0737 B/P Mean 87 03/13 0737 O2 Delivery Room air 11/28 736 Temp 36.7 11/28 736 Pulse 88 11/28 736 Resp 18 11/28 736 Last Documented: Result Date Time Pulse Ox 99 11/28 736 B/P 122/70 11/28 736 B/P Mean 87 11/28 736 O2 Delivery Room air 11/28 736 Temp 36.7 11/28 736 Pulse 88 11/28 736 Resp 18 11/28 736 Review of Vital Signs Reviewed Focused PEGeneral/Const General/Const Awake, Alert, CooperativeEyes Eyes PERRL, EOMIEars/Nose/Throat Ears/Nose/Throat Airway patent, Mucous membranes moist, Pharynx NLMS Neck Neck Supple, Full range of motion, No swelling, Non-tenderResp/Chest Respiratory/Chest Breath sounds NL, Breath sounds = bilat, No respiratory distress, No rales, No rhonchi, No wheezingCardiovascular Cardiovascular Heart rate NL, Regular rhythm, Heart sounds NL, No gallop, No murmurs, No rubsAbdomen/GI Abdomen/GI Soft, Non-tender, No guarding, No reboundSkin Skin Color NL, No rash, Warm, DryNeurologic Neurologic Oriented X3, Speech NL, No motor deficits, No sensory deficits Additional PEMS Back Back Inspection NL, Full range of motion, Painless range of motion, Non-tender Portions of this section were scribed by Yu Markham on 11/28/18 at 0955 Interpretation Diagnostics Lab Results InterpretationResultsMicrobiology: Date/Time Procedure - Status Source Growth 11/28 0757 Influenza Virus Type B Antigen - COMP NASOPHARG 11/28 075 Influenza Virus Type A Antigen - COMP NASOPHARG Lab StatementLaboratory studies reviewed and considered in the medical decision-making. Point of Care TestingMicro Interpretation Influenza rapid - negPulse Oximetry Pulse Ox % 99 On: Room air Interpretation Interpreted by ma, Pulse oximetry normal Time 0737 Portions of this section were scribed by Yu Markham on 11/28/18 at 0955 Re-Evaluation MDM Re-Evaluation/ProgressRe-Evaluation/Progress Time of Re-Eval 0932 Re-Eval Status Improved ED CourseMedication(s) OrderedMedication(s) Ordered:Central Nervous System Agents Sig/Lizzette Start time Last Medication Dose Route Stop Time Status Admin Ketorolac 60 MG X1ED STA 11/28 0749 DC 11/28 Tromethamine IM 11/28 0750 0758 Portions of this section were scribed by Yu Markham on 11/28/18 at 0955 Patient Discharge Departure Vital Signs/ConditionVital SignsFirst Documented: Result Date Time Pulse Ox 99 11/28 0737 B/P 122/70 11/28 0737 B/P Mean 87 11/28 0737 O2 Delivery Room air 11/28 0737 Temp 36.7 11/28 0737 Pulse 88 11/28 0737 Resp 18 11/28 0737 Last Documented: Result Date Time Pulse Ox 99 11/28 0737 B/P 122/70 11/28 0737 B/P Mean 87 11/28 0737 O2 Delivery Room air 11/28 0737 Temp 36.7 11/28 0737 Pulse 88 11/28 0737 Resp 18 11/28 0737 All vital signs available at the time of this entry have been reviewed. Condition Stable Clinical ImpressionClinical ImpressionPrimary Impression: Viral infection Disposition DecisionDischarge )( Discharged to Home Yes )( Time 0934 )( Date 11/28/18 Discharge/Care PlanCounseled Regarding Diagnosis, Lab results, Imaging studies, Prescriptions, Needfor follow-up, When to return to EDPrescriptionsMotrin, see RxPrescriptions Reviewed Risks, Benefits Discharge NoteI have spoken with the patient and/or caregivers. I have explained the patient'scondition, diagnoses and treatment plan based on the information available to meat this time. I have answered the patient's and/or caregiver's questions and addressed any concerns. The patient and/or caregivers have as good an understanding of the patient's diagnosis, condition and treatment plan as can beexpected at this point. The vital signs have been stable. The patient's condition is stable and appropriate for discharge from the emergency department. The patient will pursue further outpatient evaluation with the primary care physician or other designated or consulting physician as outlined in the discharge instructions. The patient and/or caregivers are agreeable to this planof care and follow-up instructions have been explained in detail. The patient and/or caregivers have received these instructions in written format and have expressed an understanding of the discharge instructions. The patient and/or caregivers are aware that any significant change in condition or worsening of symptoms should prompt an immediate return to this or the closest emergency department or a call to 911. Supervising Physician Note Scribe StatementYu Markham, 11/28/18 0755, scribing for and in the presence of [Dr. Young].Signed By: Yu Markham, 11/28/18 0755 Provider Scribed StatementI personally performed the services described in this documentation and reviewedthe documentation that was dictated to the scribe(s) in my presence, and it accurately records my words and actions. Eulalio Young, 12/03/18 Portions of this section were scribed by Yu Markham on 11/28/18 at 0954 at 2322RPT #:[id number] OF REPORTMidCoast Medical Center – Central department [id number] ilable for patient [id number] HCAMN
[2023-12-27] MEDS ORDERED: TDAP (DIPHTH,PERTUSS(ACELL),TET VAC) 0.5 ML VIAL IMVAC ONE (12:28)
[2023-12-27] MEDS ORDERED: LIDOCAINE 1% 20 ML MDV ONE (12:28)
--- NOTE | 2023-12-27 13:10 | RAD REPORT ---
EXAM DESCRIPTION: RAD - Hand Right 3 View - 12/27/2023 1:03 pm CLINICAL HISTORY: Right hand pain status post injury. Right index finger injury FINDINGS: No fracture or dislocation is seen. A radiopaque foreign body is not seen Moderate inflammatory arthropathy third DIP joint
--- NOTE | 2023-12-27 13:49 | ER ---
Nurse's Notes [facility] Name: Marcos Hobbs Age: 28 yrs Sex: Male : 1995 Arrival Date: 12/27/2023 Time: 12:05 Bed 12 Private MD: Diagnosis: Laceration without foreign body of unspecified finger with damage to nail Presentation: 12/26 12:10 Chief complaint: Patient states: Was cutting vinyl with a utility knife using right nj1 finger/hand as guide. Got right index cut with utility knife. Coronavirus screen: Vaccine status: Patient reports being unvaccinated. Ebola Screen: Patient denies travel to an Ebola-affected area in the 21 days before illness onset. Initial Sepsis Screen: Does the patient meet any 2 criteria? No. Patient's initial sepsis screen is negative. Does the patient have a suspected source of infection? No. Patient's initial sepsis screen is negative. Risk Assessment: Do you want to hurt yourself or someone else? Patient reports no desire to harm self or others. Onset of symptoms was December 27, 2023. 12:10 Method Of Arrival: Ambulatory [facility] 12:10 Acuity: DEANA 3 nj1 Historical: - Allergies: 12:11 No Known Allergies; nj1 - PMHx: 12:11 Psoriatic Arthritis; nj1 - PSHx: 12:11 Tonsillectomy; Adenoid excision; nj1 - Immunization history:: Last tetanus immunization: < 10 years ago. - Infectious Disease History:: Denies. - Social history:: Smoking status: Reported history of juuling and/or vaping. Screenin:06 [facility] ED Fall Risk Assessment (Adult) History of falling in the last 3 months, ll1 including since admission No falls in past 3 months (0 pts) Confusion or Disorientation No (0 pts) Intoxicated or Sedated No (0 pts) Impaired Gait No (0 pts) Mobility Assist Device Used No (0 pt) Altered Elimination No (0 pt) Score/Fall Risk Level 0 - 2 = Low Risk Oriented to surroundings, Hourly rounding (assess needs \T\ fall precautionary measures) done. Abuse screen: Denies threats or abuse. Nutritional screening: No deficits noted. Tuberculosis screening: No symptoms or risk factors identified. Assessment: 12:34 General: Appears uncomfortable, Behavior is calm, cooperative, appropriate for age. ll1 Pain: Complains of pain in right hand Quality of pain is described as aching. Derm: Reports laceration R hand, bleeding controlled. Musculoskeletal: Circulation, motion, and sensation intact. Capillary refill < 3 seconds, Reports pain in right hand. 14:02 Reassessment: No changes from previously documented assessment. Patient and/or family ll1 updated on plan of care and expected duration. Pain level reassessed. Patient is alert, oriented x 3, equal unlabored respirations, skin warm/dry/pink. Vital Signs: 12:10 BP 125 / 80; Pulse 78; Resp 16; Temp 97.8(TE); Pulse Ox 99% on R/A; Weight 104.33 kg; nj1 Height 6 ft. 2 in. ; Pain 7/10; 14:02 BP 121 / 81; Pulse 71; Resp 16; Temp 97.8; Pulse Ox 99% ; Pain 0/10; ll1 12:10 Body Mass Index 29.53 (104.33 kg, 187.96 cm) nj1 12:10 Pain Scale: Adult nj 14:02 Pain Scale: Adult ll1 ED Course: 12:06 Patient arrived in ED. rg4 12:11 Triage completed. nj1 12:12 Juan David Espino MD is Attending Physician. ec2 12:12 Arm band placed on left wrist. nj1 12:35 Provided Education on: ER procedures and process. ll1 13:05 Hand Right 3 View XRAY In Process Unspecified. EDMS 13:07 Patient has correct armband on for positive identification. Bed in low position. Call ll1 light in reach. Cardiac monitoring not applicable on this patient. 14:02 Dressings: non-adherent dressing 4X4s. ll1 14:03 No provider procedures requiring assistance completed. Patient did not have IV access ll1 during this emergency room visit. Administered Medications: 12:34 Drug: Boostrix Tdap IM 0.5 ml IM once; as a single dose {Note: LK59T exp 09/30/25. VIS ll1 04/23/21.} Route: IM; Site: right deltoid; 14:04 Follow up: Response: No adverse reaction ll1 13:06 Drug: Lidocaine Infiltration (1 %) 10 ml 20 ml Infiltration once; to bedside {Note: by ll1 Dr. Espino.} Volume: 20 ml; Route: Infiltration; 14:04 Follow up: Response: No adverse reaction ll1 Medication: 14:04 VIS not applicable for this client. ll1 Outcome: 13:49 Discharge ordered by . ec2 14:03 Discharged to home ambulatory, ll1 14:03 Condition: stable 14:03 Discharge instructions given to patient, Instructed on discharge instructions, follow up and referral plans. wound care, Demonstrated understanding of instructions, follow-up care, wound care, 14:04 Patient left the ED. ll1 Signatures: Dispatcher [employer] Soila Negrete rg4 Mariza Norman RN RN ll1 Louise Bellamy RN RN nj1 Juan David Espino MD MD ec2 Corrections: (The following items were deleted from the chart) 12:20 12:10 Acuity: DEANA 4 nj1 nj1
--- NOTE | 2023-12-27 13:50 | EDPHYS ---
Physician Documentation [facility] Name: Marcos Hobbs Age: 28 yrs Sex: Male : 1995 Arrival Date: 12/27/2023 Time: 12:05 Bed 12 Private MD: ED Physician Juan David Espino HPI: 12/26 12:26 This 28 yrs old Male presents to ER via Ambulatory with complaints of Finger Laceration.ec2 12:26 Patient arrives today for evaluation of an injury to the right index finger. States ec2 that he cut himself using utility knife. Last tetanus shot in 2019. Patient reports no other concerns.. Historical: - Allergies: 12:11 No Known Allergies; nj1 - PMHx: 12:11 Psoriatic Arthritis; nj1 - PSHx: 12:11 Tonsillectomy; Adenoid excision; nj1 - Immunization history:: Last tetanus immunization: < 10 years ago. - Infectious Disease History:: Denies. - Social history:: Smoking status: Reported history of juuling and/or vaping. ROS: 12:26 Constitutional: as per hpi ec2 Exam: 12:26 Constitutional: GEN: NAD Head: atraumatic Eyes: EOMI Ears: External ears are ec2 normal. CV: regular rate LUNGS: no respiratory distress ABD: non-distended SKIN: Small 2 cm laceration to the distal tip of the second digit of the right hand. MSK: no evidence of trauma NEURO: moves all extremities equally Vital Signs: 12:10 BP 125 / 80; Pulse 78; Resp 16; Temp 97.8(TE); Pulse Ox 99% on R/A; Weight 104.33 kg; nj1 Height 6 ft. 2 in. ; Pain 7/10; 14:02 BP 121 / 81; Pulse 71; Resp 16; Temp 97.8; Pulse Ox 99% ; Pain 0/10; ll1 12:10 Body Mass Index 29.53 (104.33 kg, 187.96 cm) nj1 12:10 Pain Scale: Adult nj1 14:02 Pain Scale: Adult ll1 Laceration: 13:48 Wound Repair of 2cm ( 0.8in ) subcutaneous laceration to right hand. Distal ec2 neuro/vascular/tendon intact. Anesthesia: Digital block administered with 10 mls of 1% lidocaine. Wound prep: Moderate cleansing by nurse by ks. Skin closed with 3 5-0 Prolene using simple sutures and sterile technique. Dressed with 4x4's, non-adherent dressing. MDM: 12:21 Patient medically screened. ec2 12:26 Data reviewed: vital signs. ED course: Patient arrives today for evaluation of finger ec2 injury. Examination remarkable for skin findings as noted above. Will obtain radiograph of the hand to evaluate for bony injury, will also update the patient's tetanus status.. 12/26 12:25 Order name: Hand Right 3 View XRAY; Complete Time: 13:17 ec2 12/26 12:26 Order name: Dressing - Wound; Complete Time: 12:33 ec2 12/26 12:26 Order name: Gloves, Sterile; Complete Time: 12:33 ec2 12/26 12:26 Order name: Prolene, Sutures; Complete Time: 12:33 ec2 12/26 12:26 Order name: Setup Suture Tray; Complete Time: 12:33 ec2 Administered Medications: 12:34 Drug: Boostrix Tdap IM 0.5 ml IM once; as a single dose {Note: LK59T exp 09/30/25. VIS ll1 04/23/21.} Route: IM; Site: right deltoid; 14:04 Follow up: Response: No adverse reaction [facility] 13:06 Drug: Lidocaine Infiltration (1 %) 10 ml 20 ml Infiltration once; to bedside {Note: by 1 Dr. Espino.} Volume: 20 ml; Route: Infiltration; 14:04 Follow up: Response: No adverse reaction [facility] Disposition Summary: 12/27/23 13:49 Discharge Ordered Notes: You should return to have your stitches removed in 1 week. Location: Home ec2 Condition: Stable ec2 Diagnosis - Laceration without foreign body of unspecified finger with damage to nail ec2 Followup: ec2 - With: Private Physician - When: - Reason: Re-evaluation by your physician Discharge Instructions: - Discharge Summary Sheet ll1 - Laceration Care, Adult, [id number] ec2 Forms: - Work release form ll1 - Medication Reconciliation Form ec2 - Thank You Letter ec2 - Antibiotic Education ec2 - Prescription Opioid Use ec2 - Patient Portal Instructions ec2 - Leadership Thank You Letter ec2 Signatures: Dispatcher [employer] Mariza Lou, RN RN ll1 Louise Bellamy RN RN nj1 Juan David Espino MD MD ec2
[2023-12-27 15:07] VITALS: BP 121/81; TEMP 97.8; O2SAT 99
== END 2023-12-27 14:04 | disposition home or self-care (01) ==
LOC: ER 12:05
PROC: 0HQFXZZ Repair Right Hand Skin, External Approach (ICD-10-PCS; principal; 2023-12-27)
DX: S61.310A Laceration without foreign body of right index finger with damage to nail, initial encounter (principal)
CPT/HCPCS: J2001

== ENCOUNTER 2024-01-06 13:27 | Emergency (ER) | payer SELFPAY ==
--- OUTSIDE RECORDS SUMMARY | 2024-01-06 13:30 | XMS REPORT | Continuity of Care Document ---
Author Name Unknown Address [address] [facility] [address] [place] [address] [facility] thconnect Address [address] 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 Role Phone Pcp, Patient Does Not Have A Primary Care Physic mayo Doctor Unassigned, [place] Attending Clinician Nolberto Manzano DO Attending Clinician [phone] Angelita Zepeda Attending Clinician [phone] Angelita PURVIS Attending Clinician Unavailable Yara Mujica Attending Clinician [phone] YARA QUIROGA Attending Clinician Unavailable Payers Payer Name Policy Type Policy Number Effective Date Expirati on Date Source Problems Condition Name Condition Details Condition Category Status Onset Date Resolution Date Last Treatment Date Treating Clinician Comments Source Psoriasis Psoriasis Disease Active 2013-09 00:00: 00 [facility] Psoriatic arthritis Psoriatic arthritis Disease Active 2013-09 00:00: 00 [facility] Allergies, Adverse Reactions, Alerts Allergy Name Allergy Type Status Severity Reaction(s) Onset Date Inactive Date Treating Clinician Comments Source No Known Allergie s DA Active U 11-28 00:00: 00 [facility] NO KNOWN ALLERGIE S Drug Class Active [facility] Social History Social Habit Start Date Stop Date Quantity Comments Source Alcohol intake 2019-12-04 00:00:00 2019-12-04 00:00:00 [facility] Sex Assigned At 1995 00:00:00 1995 00:00:00 [facility] Smoking Status Start Date Stop Date Source Never smoked tobacco [facility] Medications Ordered Medication Name Filled Medication Name Start Date Stop Date Current Medication? Ordering Clinician Indication Dosage Frequency Signature (SIG) Comments Components Source ondansetron (ZOFRAN ODT) 4 mg disintegrat ing tablet 03-10 00:00: 00 Yes [id number] 4mg Take 1 tablet by mouth every 8 (eight) hours as needed for Nausea and Vomiting (N/V). [facility] ibuprofen 600 mg tablet 11-16 00:00: 00 Yes [id number] 600mg Take 1 tablet by mouth every 6 (six) hours as needed for Pain (scale 4-6). [facility] ibuprofen (IBU) tablet 600 mg 12-03 18:45: 00 12-03 17:41 :00 No 600mg 600 mg, Oral, ONCE, 1 dose, Mon12/04/19 at 1345, TRINO [facility] albuterol 90 mcg/actuati on inhaler 06-03 00:00: 00 Yes 2{puff} Inhale 2 Puffs every 6 (six) hours as needed for Wheezing or Shortness of Breath. [facility] azithromyci n 250 mg tablet 06-03 00:00: 00 Yes 250mg Take 1 tablet by mouth SEE-INSTRU CTIONS. Take 500 mg day 1, then 250 mg days 2 to 5. [facility] sulfaSALAzi ne (AZULFIDINE ) 500 mg tablet 2014-09 00:00: 00 Yes 500mg Take 1 Tab by mouth 2 (two) times daily. [facility] ondansetron (ZOFRAN ODT) 4 mg disintegrat ing tablet 2014-09 00:00: 00 Yes [id number] 4mg Take 1 Tab by mouth as needed for Nausea and Vomiting (N/V). [facility] zolpidem (AMBIEN) 5 mg tablet 04-28 00:00: 00 Yes 5mg Take 1 Tab by mouth at bedtime as needed for Insomnia. [facility] acetaminoph en-codeine (TYLENOL #3) 300-30 mg tablet 04-13 00:00: 00 Yes 1{tbl} Take 1 Tab by mouth every 6 (six) hours as needed (as needed for severe pain). [facility] adalimumab (HUMIRA PEN) 40 mg/0.8 mL injection 04-13 00:00: 00 Yes 40mg inject 0.8 mL under the skin every 14 (fourteen) days. [facility] foLIC acid (FOLATE) 1 mg tablet 04-13 00:00: 00 Yes 1mg Take 1 Tab by mouth daily. [facility] Vital Signs Vital Name Observation Time Observation Value Comments S ource Systolic blood pressure 2019-12-04 17:06:00 140 mm[Hg] [facility] Diastolic blood pressure 2019-12-04 17:06:00 76 mm[Hg] [facility] Heart rate 2019-12-04 17:06:00 72 /min [facility] Body temperature 2019-12-04 17:06:00 36.94 Marta [facility] Respiratory rate 2019-12-04 17:06:00 18 /min [facility] Body weight 2019-12-04 17:06:00 117.935 kg [facility] Oxygen saturation in Arterial blood by Pulse oximetry 2019-12-04 17:06:00 98 /min [facility] Systolic blood pressure 2019-12-04 17:06:00 140 mm[Hg] [facility] Diastolic blood pressure 2019-12-04 17:06:00 76 mm[Hg] [facility] Heart rate 2019-12-04 17:06:00 72 /min [facility] Body temperature 2019-12-04 17:06:00 36.94 Marta [facility] Respiratory rate 2019-12-04 17:06:00 18 /min [facility] Body weight 2019-12-04 17:06:00 117.935 kg [facility] Oxygen saturation in Arterial blood by Pulse oximetry 2019-12-04 17:06:00 98 /min [facility] Procedures Procedure Date / Time Performed Performing Clinician Source VACCINATIONS - CONSENTS, ELIGIBILITY, HISTORY 2022-05-17 05:01:00 Doctor Unassigned, [place] [facility] Encounters Start Date/Time End Date/Time Encounter Type Admission Type Attending Clinicians Care Facility Care Department Encounter ID Source 2022-05-17 00:00:00 2022-05-17 00:00:00 Orders Only Doctor Unassigned, [place] [facility] 1.2.840.114 350.1.13.10 4.2.7.2.686 [id number] [facility] 2021-05-07 09:43:00 2021-05-07 10:22:00 Emergency AlvarezNolberto okeefe [facility] 1.2.840.114 350.1.13.10 4.2.7.2.686 [id number] 2021-05-07 09:29:00 2021-05-07 09:29:00 Emergency X [facility] ERT [id number] [facility] 2021-03-10 13:05:00 2021-03-10 14:24:00 Emergency Angelita Purvis [facility] 1.2.840.114 350.1.13.10 4.2.7.2.686 [id number] 2021-03-10 13:05:00 2021-03-10 13:05:00 Emergency X Angelita PURVIS [facility] ERT [id number] [facility] 2020-11-16 15:16:00 2020-11-16 16:37:00 Emergency Angelita Purvis [facility] 1.2.840.114 350.1.13.10 4.2.7.2.686 [id number] 2020-11-16 15:16:00 2020-11-16 15:16:00 Emergency Angelita AMIN [facility] ERT [id number] [facility] 2020-11-16 00:00:00 2020-11-16 00:00:00 Orders Only Doctor Unassigned, [place] [facility] 1.2.840.114 350.1.13.10 4.2.7.2.686 [id number] 2019-12-04 11:59:23 2019-12-04 13:08:00 Emergency Yara Quiroga [facility] 1.2.840.114 350.1.13.10 4.2.7.2.686 [id number] 2019-12-04 11:59:23 2019-12-04 13:08:00 Emergency Yara Quiroga [facility] 1.2.840.114 350.1.13.10 4.2.7.2.686 [id number] [facility] 2019-12-04 11:59:23 2019-12-04 11:59:23 Emergency YARA CHEN [facility] ERT [id number] [facility] Results Test Description Test Time Test Comments Results Resul t Comments Source - XR CHEST 1 V 2019-01-30 10:25:00 FAX: Wally Jamison [phone] [place]: EM St: REG Name: DAVID PACKER [facility] : 1995 Age[facility]S: 23/[facility] [address] [facility]: [id number] Loc: E.EXP [place], [place] Phys: Wally Means REFRIGERATION SERVICE TECHNICIAN [address] Acct: [id number] Dis Date: Status: REG ER PHONE #: [phone] Exam Date: 01/30/2019 0950 FAX #: [phone] Reason: cough EXAMS: CPT CODE: [id number] XR CHEST 1 V 12385 Chest Radiograph History: cough Comparison: December 04, 2018 Location: R16 A single frontal view of the chest is submitted. The heart appears unchanged in size. Pulmonary vasculature is unremarkable. The visualized lung glez appear to be free of disease. The bones appear unchanged. IMPRESSION: There is no radiographic evidence of acute cardiopulmonary disease. at 1026 Reported and signed by: Skyler Cooper M.D. CC: Wally Means NP Technologist: AKASH Sharifrd Date/Time/By: 01/30/2019 (0801) : By: JaisonPMT PAGE 1 Signed Report FAX: Wally Jamison [phone] [place]: St: REG Name: DAVID PACKER [facility] : 1995 Age/S: 23/M [address] [facility] Unit #: [id number] Loc: E.[place], [place] Phys: Wally Means REFRIGERATION SERVICE TECHNICIAN [address] Acct: [id number] Dis Date: Status: REG ER PHONE #: [phone] Exam Date: 01/30/2019 0950 FAX #: [phone] Reason: cough EXAMS: CPT CODE: [id number] XR CHEST 1 V 28734 (Continued) Orig Print D/T: S: 01/30/2019 (4097) PAGE 2 Signed Report - XR CHEST 2 V 2018-12-04 10:27:00 FAX: Joan Sheehan NP [phone] [place]: St: REG Name: DAVID PACKER [facility] : 1995 Age/S: 23/M [address] [facility] Unit #: [id number] [place]: [place]: [place] [address] Acct: [id number] Dis Date: Status: REG ER PHONE #: [phone] Exam Date: 12/04/2018 1024 FAX #: [phone] Reason: cough EXAMS: CPT CODE: [id number] XR CHEST 2 V 10681 C3 TIME OF STUDY: 12/04/2018 9:35 AM REASON FOR EXAM: cough COMPARISON: None FINDINGS: PA and lateral upright views of the chest were obtained. Lungs: Normal lung volume. No mass, or consolidation. Normal pulmonary vascularity. Pleura: No pleural effusion or pneumothorax. Heart and Mediastinum: Normal cardiomediastinal silhouette and great vessels. Bones: Normal regional skeletal structures. IMPRESSION: 1. No acute cardiopulmonary process. at 1029 Reported and signed by: Jose Boles M.D. CC: Joan Sheehan NP Technologist: CHERI GENTILE Trncrystalrd Date/Time/By: 12/04/2018 (2443) : By: [email or web address] PAGE 1 Signed Report FAX: Joan Sheehan NP [phone] [place]: EM St: REG Name: DAVID PACKER [facility] : 1995 Age/S: 23/M [address] [facility] Unit #: [id number] Loc: E.[place], [place]: [place] [address] Acct: [id number] Dis Date: Status: REG ER PHONE #: [phone] Exam Date: 12/04/2018 1024 FAX #: [phone] Reason: cough EXAMS: CPT CODE: [id number] XR CHEST 2 V 28528 (Continued) Orig Print D/T: S: 12/04/2018 (1030) PAGE 2 Signed Report Notes Date/Time Note Provider Source 2019-01-30 09:50:00 [id number] 2kcb6Cv46NCxIn8bWMEBj7CtiI0BK B9nv9i48bes9JYsqJQjZpDDi8d3SJi9HTQ9664-48-39K61:5 0:00 [facility] ([facility] PROVID[facility] REPORTREPORT#:[id number] REPORT STATUS: SignedDATE:01/30/19 TIME: 0950 PATIENT: DAVID PACKER UNIT #: [id number]#: [id number] ROOM/BED:AGE: 23 SEX: M PCP PHYS: No [...] System Ab for med reason at 1505RPT #:[id number] OF REPORTEDEmergency department snhgcq1989-51-97C39:50:00E.[id number] ilable for patient hjuuQGNHVZFZNNUBZZ1301-65-84C17:06:07 [facility] 2019-01-30 09:50:00 [id number] Bj+g8BFypPqyAUakKSQs3Xz1fweDw +IoRwMYdAkJWilYkU4yjVb1YA4sMRyYuXV0561-18-06Y88:5 0:00 [facility] ([facility] PROVID[facility] REPORTREPORT#:[id number] REPORT STATUS: SignedDATE:01/30/19 TIME: 0950 PATIENT: DAVID PACKER UNIT #: [id number]#: [id number] ROOM/BED:AGE: 23 SEX: M PCP PHYS: No [...] MidLv Saw Pt AloneI have reviewed the PA/REFRIGERATION SERVICE TECHNICIAN's note and plan of care. I was available for consultation as needed at all times during the patient's visit in the emergency department. I agree with the clinical impression, plan and disposition. at 1505 at 1543RPT #:[id number] OF REPORTEDEmereureka springs hospital department efmrqg2063-13-97K80:50:00E.[id number] ilable for patient iyuwDZEYBRWRPLRQKC6311-37-99I45:44:01 [facility] 2018-12-04 10:40:00 OSyreputsmx16992246s 3Uj0/P7D6mhST1GgL5fD2tapzdK6e RCuc3/VtxOD51g83qYTVCYyEEaKshKO9J53199-72-51O96:4 0:00 [facility] ([facility] PROVID[facility] REPORTREPORT#:[id number] REPORT STATUS: SignedDATE:12/04/18 TIME: 1040 PATIENT: DAVID PACKER UNIT #: [id number]#: [id number] ROOM/BED:AGE: 23 SEX: M PCP PHYS: No Primary or Family PhysicianSERVICE AUTHOR: Joan Sheehan REFRIGERATION SERVICE TECHNICIAN * ALL edits or amendments must be [...] room 2 then is awaiting room from [facility]. Orders placed Review of Systems ROS [...] behind TM purulent, External canal red, External core composer machine tender, Ext canal foreign body, Discharge purulent, Discharge bloody, Ext canal cerumen impact, Mastoid area red, Mastoid area tender, [place] red, [place]ine tender. Left Ear/Mastoid Negative: Tympanic membrane red, Tympanic membrane bulging, Tympanic memb perforated, Tympanic memb retracted, Bullous myringitis, Fluid behind TM clear, Fluid behind TM purulent, External canal red, External core composer machine tender, Ext canal foreign body, Discharge purulent, Discharge bloody, Ext canal cerumen impact, Mastoid area red, Mastoid area tender, [place] red, Racine tender. MS Neck Neck Atraumatic, Supple, No [...] or a call to 911. at 1424RPT #:[id number] OF REPORTEDEmergen department yfmfhs5288-82-91P44:40:00E.[id number] ilable for patient vkamGJFGWGYAFSCIMN8061-98-29S28:24:05 [facility] 2018-12-04 10:40:00 VGnddrlucfb61661603q r1ZBaE0KAnXIa5olOFx2b00xwA3u4 58slzwZSCQhrb2rCwfYbM5iKFGk1pABT9e3530-62-71S39:4 0:00 [facility] ([facility] PROVID[facility] REPORTREPORT#:[id number] REPORT STATUS: SignedDATE:12/04/18 TIME: 1040 PATIENT: DAVID PACKER UNIT #: [id number]#: [id number] ROOM/BED:AGE: 23 SEX: M PCP PHYS: No [...] room 2 then is awaiting room from [facility]. Orders placed Review of Systems ROS [...] behind TM purulent, External canal red, External core composer machine tender, Ext canal foreign body, Discharge purulent, Discharge bloody, Ext canal cerumen impact, Mastoid area red, Mastoid area tender, [place] red, Racine tender. Left Ear/Mastoid Negative: Tympanic membrane red, Tympanic membrane bulging, Tympanic memb perforated, Tympanic memb retracted, Bullous myringitis, Fluid behind TM clear, Fluid behind TM purulent, External canal red, External core composer machine tender, Ext canal foreign body, Discharge purulent, Discharge bloody, Ext canal cerumen impact, Mastoid area red, Mastoid area tender, Racine red, Racine tender. MS Neck Neck Atraumatic, Supple, No [...] MidLv Saw Pt AloneI have reviewed the PA/REFRIGERATION SERVICE TECHNICIAN's note and plan of care. I was available for consultation as needed at all times during the patient's visit in the emergency department. I agree with the clinical impression, plan and disposition. at 1424 at 1220RPT #:[id number] OF REPORTEDEmereureka springs hospital department zodxgh9886-32-19P25:40:00E.[id number] ilable for patient bxrpUZJHCVOCAJCGEO7917-78-68W78:20:25 [facility] 2018-11-28 07:49:00 [id number] ZYOnuvz/WA435AJYuCnE3FTlFiqQj 95QixYh1O6A9eZDcTixD1oEcMaZUa1VoZ37274-65-44S28:4 9:00 [facility] ([facility] PROVIDER REPORTREPORT#:[id number] REPORT STATUS: SignedDATE:11/28/18 TIME: 0749 PATIENT: DAVID PACKER UNIT #: [id number]#: [id number] ROOM/BED:AGE: 23 SEX: M PCP PHYS: No Primary or Family PhysicianSERVICE AUTHOR: Eulalio Young MD * ALL edits or amendments must be made on the electronic/computer document * VUJ-Tzn-Oeuo Illness GeneralConfirmed Patient YesInitial Greet Date/Time 11/28/18 [...] by Yu Markham on 11/28/18 at 0955 Review of [...] 99 On: Room air Interpretation Interpreted by ca, Pulse oximetry normal Time 0737 Portions of [...] accurately records my words and actions. Eulalio oYung, 12/03/18 Portions of this section were scribed by Yu Markham on 11/28/18 at 0954 at 2322RPT #:[id number] OF REPORTW[facility] Health [facility] department donmtg2740-91-08W11:49:00E.[id number] ilable for patient krbtXYAQSYJTPSZJRO2376-33-81K52:22:21 [facility]
--- NOTE | 2024-01-06 13:52 | EDPHYS ---
Physician Documentation [facility] Name: Marcos Hobbs Age: 28 yrs Sex: Male : 1995 Arrival Date: 01/06/2024 Time: 13:27 Bed 12 Private MD: ED Physician Spencer Apple HPI: 01/05 13:53 This 28 yrs old Male presents to ER via Ambulatory with complaints of Suture Removal. rt 13:53 Patient presents to the ED for suture removal. The patient had 3 sutures placed to the rt right index finger 10 days ago. States that has been healing well. Denies other acute complaints, symptoms are mild in severity, no other aggravating or elevating factors.. Historical: - Allergies: 13:42 No Known Allergies; iw - PMHx: 13:42 Psoriatic Arthritis; iw - PSHx: 13:42 Adenoid excision; Tonsillectomy; iw - Infectious Disease History:: Denies. - Social history:: Smoking status: . - Family history:: not pertinent. ROS: 13:53 Constitutional: Negative for fever, chills, and weight loss, Skin: Negative for injury, rt rash, and discoloration, Neuro: Negative for headache, weakness, numbness, tingling, and seizure, Psych: Negative for depression, anxiety, suicide ideation, homicidal ideation, and hallucinations, 13:53 MS/extremity: Positive for Sutured laceration, Exam: 13:53 Musculoskeletal/extremity: Well-healed laceration to the right index finger. [address]. 13:53 Constitutional: This is a well developed, well nourished patient who is awake, alert, rt and in no acute distress. Head/Face: Normocephalic, atraumatic. Skin: Warm, dry with normal turgor. Normal color with no rashes, no lesions, and no evidence of cellulitis. Neuro: Awake and alert, GCS 15, oriented to person, place, time, and situation. Cranial nerves II-XII grossly intact. Motor strength 5/5 in all extremities. Sensory grossly intact. Cerebellar exam normal. Normal gait. Psych: Awake, alert, with orientation to person, place and time. Behavior, mood, and affect are within normal limits. Vital Signs: 13:43 BP 117 / 67; Pulse 82; Resp 16; Temp 98.2; Pulse Ox 100% on R/A; Weight 104.33 kg; iw Height 6 ft. 2 in. ; 13:43 Body Mass Index 29.53 (104.33 kg, 187.96 cm) iw Procedures: 13:53 Suture/Staple removal: Removed 3 sutures, from palmar aspect of distal phalanx of right rt index finger. MDM: 13:46 Patient medically screened. rt 13:53 Data reviewed: vital signs, nurses notes. Counseling: I had a detailed discussion with rt the patient and/or guardian regarding the historical points, exam findings, and any diagnostic results supporting the discharge/admit diagnosis, the need for outpatient follow up. Response to treatment: the patient's symptoms have resolved after treatment. Administered Medications: No medications were administered Disposition Summary: 01/06/24 13:51 Discharge Ordered Notes: Location: Home rt Problem: new rt Symptoms: are resolved rt Condition: Stable rt Diagnosis - Encounter for removal of sutures rt Followup: rt - With: Private Physician - When: As needed - Reason: Discharge Instructions: - Discharge Summary Sheet rt - Suture Removal, Care After rt Forms: - Medication Reconciliation Form rt - Thank You Letter rt - Antibiotic Education rt - Prescription Opioid Use rt - Patient Portal Instructions rt - Leadership Thank You Letter rt Signatures: Reina Rashid, SANDRA RN iw Spencer Apple MD MD rt
--- NOTE | 2024-01-06 13:52 | ER ---
Nurse's Notes [facility] Name: Marcos Hobbs Age: 28 yrs Sex: Male : 1995 Arrival Date: 01/06/2024 Time: 13:27 Bed 12 Private MD: Diagnosis: Encounter for removal of sutures Presentation: 01/05 13:42 Chief complaint: Patient states: needs sutures removed from right index finger. iw Coronavirus screen: At this time, the client does not indicate any symptoms associated with coronavirus-19. Ebola Screen: Patient negative for fever greater than or equal to 101.5 degrees Fahrenheit, and additional compatible Ebola Virus Disease symptoms Patient denies exposure to infectious person. Patient denies travel to an Ebola-affected area in the 21 days before illness onset. No symptoms or risks identified at this time. Initial Sepsis Screen: Does the patient meet any 2 criteria? No. Patient's initial sepsis screen is negative. Does the patient have a suspected source of infection? No. Patient's initial sepsis screen is negative. Risk Assessment: Do you want to hurt yourself or someone else? Patient reports no desire to harm self or others. Onset of symptoms was December 28, 2023. 13:42 Method Of Arrival: Ambulatory iw 13:42 Acuity: DEANA 4 iw Historical: - Allergies: 13:42 No Known Allergies; iw - PMHx: 13:42 Psoriatic Arthritis; iw - PSHx: 13:42 Adenoid excision; Tonsillectomy; iw - Infectious Disease History:: Denies. - Social history:: Smoking status: . - Family history:: not pertinent. Vital Signs: 13:43 BP 117 / 67; Pulse 82; Resp 16; Temp 98.2; Pulse Ox 100% on R/A; Weight 104.33 kg; iw Height 6 ft. 2 in. ; 13:43 Body Mass Index 29.53 (104.33 kg, 187.96 cm) iw ED Course: 13:30 Patient arrived in ED. ra3 13:31 Spencer Apple MD is Attending Physician. rt 13:42 Triage completed. iw 13:42 Arm band placed on. iw 13:58 Reina Rashid, RN is Primary Nurse. iw Administered Medications: No medications were administered Outcome: 13:51 Discharge ordered by . rt 13:58 Discharged to home ambulatory, iw 13:58 Condition: good 13:58 Discharge instructions given to patient, Instructed on discharge instructions, 13:58 No charge visit due to suture removal. 13:59 Patient left the ED. Signatures: Reina Rashid RN RN iw Spencer Apple MD MD rt Dana Disla ra3
[2024-01-06 14:17] VITALS: BP 117/67; TEMP 98.2; O2SAT 100
== END 2024-01-06 13:59 | disposition home or self-care (01) ==
LOC: ER 13:27
DX: Z48.02 Encounter for removal of sutures (principal)

== ENCOUNTER 2024-03-21 10:38 | Emergency (ER) | payer SELFPAY ==
--- OUTSIDE RECORDS SUMMARY | 2024-03-21 10:40 | XMS REPORT | Continuity of Care Document ---
Author Name Unknown Address [address] [facility] [address] [place] [address] [facility] thconnect Address [address] [facility]. [address] [place] [address] Care Team Providers Care Flakeboard Line Tender Name Role Phone Pcp, Patient Does Not Have A Primary Care Physic mayo Doctor Unassigned, [facility] Attending Clinician Nolberto Manzano DO Attending Clinician [phone] Angelita Zepeda Attending Clinician [phone] Angelita PURVIS Attending Clinician Unavailable Yara Mujica Attending Clinician [phone] YARA QUIROGA Attending Clinician Unavailable Payers Payer Name Policy Type Policy Number Effective Date Expirati on Date Source Problems Condition Name Condition Details Condition Category Status Onset Date Resolution Date Last Treatment Date Treating Clinician Comments Source Psoriasis Psoriasis Disease Active 2013-09 00:00: 00 [facility] Psoriatic arthritis Psoriatic arthritis Disease Active 2013-09 00:00: 00 [facility] Allergies, Adverse Reactions, Alerts Allergy Name Allergy Type Status Severity Reaction(s) Onset Date Inactive Date Treating Clinician Comments Source No Known Allergie s DA Active U 11-28 00:00: 00 [facility] NO KNOWN ALLERGIE S Drug Class Active [facility] Social History Social Habit Start Date Stop Date Quantity Comments Source Alcohol intake 2019-12-04 00:00:00 2019-12-04 00:00:00 [facility] Sex Assigned At 1995 00:00:00 1995 00:00:00 [facility] Smoking Status Start Date Stop Date Source Never smoked tobacco [facility] Medications Ordered Medication Name Filled Medication Name Start Date Stop Date Current Medication? Ordering Clinician Indication Dosage Frequency Signature (SIG) Comments Components Source ondansetron (ZOFRAN ODT) 4 mg disintegrat ing tablet 03-10 00:00: 00 Yes [id number] 4mg Take 1 tablet by mouth every 8 (eight) hours as needed for Nausea and Vomiting (N/V). [facility] ibuprofen 600 mg tablet 11-16 00:00: 00 Yes [id number] 600mg Take 1 tablet by mouth every 6 (six) hours as needed for Pain (scale 4-6). [facility] ibuprofen (IBU) tablet 600 mg 12-03 18:45: 00 12-03 17:41 :00 No 600mg 600 mg, Oral, ONCE, 1 dose, Mon12/04/19 at 1345, TRINO [facility] albuterol 90 mcg/actuati on inhaler 06-03 00:00: 00 Yes 2{puff} Inhale 2 Puffs every 6 (six) hours as needed for Wheezing or Shortness of Breath. [facility] azithromyci n 250 mg tablet 06-03 00:00: 00 Yes 250mg Take 1 tablet by mouth SEE-INSTRU CTIONS. Take 500 mg day 1, then 250 mg days 2 to 5. [facility] sulfaSALAzi ne (AZULFIDINE ) 500 mg tablet 2014-09 00:00: 00 Yes 500mg Take 1 Tab by mouth 2 (two) times daily. [facility] ondansetron (ZOFRAN ODT) 4 mg disintegrat ing tablet 2014-09 00:00: 00 Yes [id number] 4mg Take 1 Tab by mouth as needed for Nausea and Vomiting (N/V). [facility] zolpidem (AMBIEN) 5 mg tablet 04-28 00:00: 00 Yes 5mg Take 1 Tab by mouth at bedtime as needed for Insomnia. [facility] acetaminoph en-codeine (TYLENOL #3) 300-30 mg tablet 04-13 00:00: 00 Yes 1{tbl} Take 1 Tab by mouth every 6 (six) hours as needed (as needed for severe pain). [facility] adalimumab (HUMIRA PEN) 40 mg/0.8 mL injection 04-13 00:00: 00 Yes 40mg inject 0.8 mL under the skin every 14 (fourteen) days. [facility] foLIC acid (FOLATE) 1 mg tablet 04-13 00:00: 00 Yes 1mg Take 1 Tab by mouth daily. [facility] Vital Signs Vital Name Observation Time Observation Value Comments S ource Systolic blood pressure 2019-12-04 17:06:00 140 mm[Hg] [facility] Diastolic blood pressure 2019-12-04 17:06:00 76 mm[Hg] [facility] Heart rate 2019-12-04 17:06:00 72 /min [facility] Body temperature 2019-12-04 17:06:00 36.94 [facility] Respiratory rate 2019-12-04 17:06:00 18 /min [facility] Body weight 2019-12-04 17:06:00 117.935 kg [facility] Oxygen saturation in Arterial blood by Pulse oximetry 2019-12-04 17:06:00 98 /min [facility] Systolic blood pressure 2019-12-04 17:06:00 140 mm[Hg] [facility] Diastolic blood pressure 2019-12-04 17:06:00 76 mm[Hg] [facility] Heart rate 2019-12-04 17:06:00 72 /min [facility] Body temperature 2019-12-04 17:06:00 36.94 [facility] Respiratory rate 2019-12-04 17:06:00 18 /min [facility] Body weight 2019-12-04 17:06:00 117.935 kg [facility] Oxygen saturation in Arterial blood by Pulse oximetry 2019-12-04 17:06:00 98 /min [facility] Procedures Procedure Date / Time Performed Performing Clinician Source VACCINATIONS - CONSENTS, ELIGIBILITY, HISTORY 2022-05-17 05:01:00 Doctor Unassigned, [facility] Encounters Start Date/Time End Date/Time Encounter Type Admission Type Attending Clinicians Care Facility Care Department Encounter ID Source 2022-05-17 00:00:00 2022-05-17 00:00:00 Orders Only Doctor Unassigned, [facility] 1.2.840.114 350.1.13.10 4.2.7.2.686 [id number] [facility] 2021-05-07 09:43:00 2021-05-07 10:22:00 Emergency AlvarezNolberto okeefe [facility] 1.2.840.114 350.1.13.10 4.2.7.2.686 [id number] 2021-05-07 09:29:00 2021-05-07 09:29:00 Emergency X [facility] ERT [id number] [facility] 2021-03-10 13:05:00 2021-03-10 14:24:00 Emergency Angelita Purvis [facility] 1.2.840.114 350.1.13.10 4.2.7.2.686 [id number] 2021-03-10 13:05:00 2021-03-10 13:05:00 Emergency X Angelita PURVIS [facility] ERT [id number] [facility] 2020-11-16 15:16:00 2020-11-16 16:37:00 Emergency Angelita Purvis [facility] 1.2.840.114 350.1.13.10 4.2.7.2.686 [id number] 2020-11-16 15:16:00 2020-11-16 15:16:00 Emergency Angelita AMIN [facility] ERT [id number] [facility] 2020-11-16 00:00:00 2020-11-16 00:00:00 Orders Only Doctor Unassigned, [facility] 1.2.840.114 350.1.13.10 4.2.7.2.686 [id number] 2019-12-04 11:59:23 2019-12-04 13:08:00 Emergency Yara Quiroga [facility] 1.2.840.114 350.1.13.10 4.2.7.2.686 [id number] 2019-12-04 11:59:23 2019-12-04 13:08:00 Emergency Yara Quiroga [facility] 1.2.840.114 350.1.13.10 4.2.7.2.686 [id number] [facility] 2019-12-04 11:59:23 2019-12-04 11:59:23 Emergency YARA CHEN [facility] ERT [id number] [facility] Results Test Description Test Time Test Comments Results Resul t Comments Source - XR CHEST 1 V 2019-01-30 10:25:00 FAX: Wally Jamison [phone] [place]: EM St: REG Name: DAVID PACKER [facility] : 1995 Age/S: 23/M [address] [facility]: [id number] Loc: E.EXP [place], [place] Phys: Wally Means INFORMATION TECH [address] Acct: [id number] Dis Date: Status: REG ER PHONE #: [phone] Exam Date: 01/30/2019 0950 FAX #: [phone] Reason: cough EXAMS: CPT CODE: [id number] XR CHEST 1 V 34125 Chest Radiograph History: cough Comparison: December 04, [...] Means NP Technologist: AKASH Sharifrd Date/Time/By: 01/30/2019 (4853) : By: JaisonPMT PAGE 1 Signed Report FAX: Wally Jamison [phone] [place]: St: REG Name: DAVID PACKER [facility] : 1995 Age/S: 23/M [address] [facility] Unit #: [id number] Loc: E.EXP [place], [place] Phys: Wally Means INFORMATION TECH [address]304 Acct: [id number] Dis Date: Status: REG ER PHONE #: [phone] Exam Date: 01/30/2019 0950 FAX #: [phone] Reason: cough EXAMS: CPT CODE: [id number] XR CHEST 1 V 54887 (Continued) Orig Print D/T: S: 01/30/2019 (4245) PAGE 2 Signed Report - XR CHEST 2 V 2018-12-04 10:27:00 FAX: Joan Sheehan NP [phone] [place]: St: REG Name: DAVID PACKER [facility] : 1995 Age/S: 23/M [address] [facility] Unit #: [id number] [place]: [place] [id number] Acct: [id number] Dis Date: Status: REG ER PHONE #: [phone] Exam Date: 12/04/2018 1024 FAX #: [phone] Reason: cough EXAMS: CPT CODE: [id number] XR CHEST 2 V 73675 C3 TIME OF STUDY: 12/04/2018 9:35 AM [...] NP Technologist: CHERI GENTILE Trncrystalrd Date/Time/By: 12/04/2018 (7075) : By: [email or web address] PAGE 1 Signed Report FAX: Joan Sheehan NP [phone] [place]: EM St: REG Name: DAVID PACKER [facility] : 1995 Age/S: 23/M [address] [facility] Unit #: [id number] Loc: E.[place], [place]: [place] [address] Acct: [id number] Dis Date: Status: REG ER PHONE #: [phone] Exam Date: 12/04/2018 1024 FAX #: [phone] Reason: cough EXAMS: CPT CODE: [id number] XR CHEST 2 V 99512 (Continued) Orig Print D/T: S: 12/04/2018 (1030) PAGE 2 Signed Report Notes Date/Time Note Provider Source 2019-01-30 09:50:00 VFqwzriugyn24809021N 3xqc0Dm93FDlOz9yMWYVw7SyeA3BZ H9sz6v28nie4LXxhTHvBoUVc3i1PLs4OHX1292-81-75E10:5 0:00 [facility] REPORTREPORT#:[id number] REPORT STATUS: SignedDATE:01/30/19 TIME: 0950 PATIENT: DAVID PACKER UNIT #: [id number]#: [id number] ROOM/BED:AGE: 23 SEX: M PCP PHYS: No [...] System Ab for med reason at 1505RPT #:[id number] OF REPORTEDEmergency department nyrbed8070-71-23D15:50:00E.GANW70368950-4473OHXxu ilable for patient fiooLNYAGHRMQIXTMX7585-66-87F16:06:07 [facility] 2019-01-30 09:50:00 YSugecepelv69742796q Bj+u0REuyWvxDQioOPSd8Pg9trmKd +DqXvCYgZjTVteYsV4kxIh1KE4sRHeBgVZ0178-23-44Q52:5 0:00 [facility] REPORTREPORT#:[id number] REPORT STATUS: SignedDATE:01/30/19 TIME: 0950 PATIENT: DAVID PACKER UNIT #: [id number]#: [id number] ROOM/BED:AGE: 23 SEX: M PCP PHYS: No [...] MidLv Saw Pt AloneI have reviewed the PA/INFORMATION TECH's note and plan of care. I was available for consultation as needed at all times during the patient's visit in the emergency department. I agree with the clinical impression, plan and disposition. at 1505 at 1543RPT #:[id number] OF REPORTEDEmernational park medical center department wtvimr7728-53-81U30:50:00E.OTGC87029040-8880MPFql ilable for patient okkhPVKPYMPVEDTERW5173-23-94E77:44:01 [facility] 2018-12-04 10:40:00 SNaopjvpngv65566281l 3Uj0/C4O5ynUH0SiE5oM9qifdlL2s RCuc3/LlrXQ91a98qDEZKVtOYiDnsDN4G07459-10-64T04:4 0:00 [facility] REPORTREPORT#:[id number] REPORT STATUS: SignedDATE:12/04/18 TIME: 1040 PATIENT: DAVID PACKER UNIT #: [id number]#: [id number] ROOM/BED:AGE: 23 SEX: M PCP PHYS: No Primary or Family PhysicianSERVICE AUTHOR: Joan Sheehan INFORMATION TECH * ALL edits or amendments must be [...] room 2 then is awaiting room from [facility]. Orders placed Review of Systems ROS [...] behind TM purulent, External canal red, External bird tender, Ext canal foreign body, Discharge purulent, Discharge bloody, Ext canal cerumen impact, Mastoid area red, Mastoid area tender, [place] red, [place] tender. Left Ear/Mastoid Negative: Tympanic membrane red, Tympanic membrane bulging, Tympanic memb perforated, Tympanic memb retracted, Bullous myringitis, Fluid behind TM clear, Fluid behind TM purulent, External canal red, External bird tender, Ext canal foreign body, Discharge purulent, Discharge bloody, Ext canal cerumen impact, Mastoid area red, Mastoid area tender, [place] red, [place] tender. MS Neck Neck Atraumatic, Supple, No [...] or a call to 911. at 1424RPT #:[id number] OF REPORTEDEmergen department vtnfju4837-13-64R53:40:00E.WUPI15334966-6710RYQqq ilable for patient oxbaVYHCKMXGRTTOKQ4585-36-85P87:24:05 [facility] 2018-12-04 10:40:00 VQocihvpcin77258586o c3UTiW2AUeRIg0fuNYw0f37xnM0v8 64vefnLRTJpyz0yIszTfI0eLCGu4gCCX6f8050-10-29S32:4 0:00 [facility] REPORTREPORT#:[id number] REPORT STATUS: SignedDATE:12/04/18 TIME: 1040 PATIENT: DAVID PACKER UNIT #: [id number]#: [id number] ROOM/BED:AGE: 23 SEX: M PCP PHYS: No [...] room 2 then is awaiting room from [facility]. Orders placed Review of Systems ROS [...] behind TM purulent, External canal red, External bird tender, Ext canal foreign body, Discharge purulent, Discharge bloody, Ext canal cerumen impact, Mastoid area red, Mastoid area tender, [place] red, [place] tender. Left Ear/Mastoid Negative: Tympanic membrane red, Tympanic membrane bulging, Tympanic memb perforated, Tympanic memb retracted, Bullous myringitis, Fluid behind TM clear, Fluid behind TM purulent, External canal red, External bird tender, Ext canal foreign body, Discharge purulent, Discharge bloody, Ext canal cerumen impact, Mastoid area red, Mastoid area tender, [place] red, [place] tender. MS Neck Neck Atraumatic, Supple, No [...] MidLv Saw Pt AloneI have reviewed the PA/INFORMATION TECH's note and plan of care. I was available for consultation as needed at all times during the patient's visit in the emergency department. I agree with the clinical impression, plan and disposition. at 1424 at 1220RPT #:[id number] OF REPORTEDEmernational park medical center department ywcybv4700-59-92O84:40:00E.EKKP04404245-3332YDKsa ilable for patient ovoiJGCIGZOWMVOTFO6196-50-25A91:20:25 [facility] 2018-11-28 07:49:00 DOhspggello01191990K ZYOnuvz/IF458EKGiLmL2OXjXesCy 34AkgLp7Z6G6fJTiKinR7mNgJeOPj8QyV23097-90-48V54:4 9:00 [facility] REPORTREPORT#:[id number] REPORT STATUS: SignedDATE:11/28/18 TIME: 0749 PATIENT: DAVID PACKER UNIT #: [id number]#: [id number] ROOM/BED:AGE: 23 SEX: M PCP PHYS: No Primary or Family PhysicianSERVICE AUTHOR: Eulalio Young MD * ALL edits or amendments must be made on the electronic/computer document * GBS-Tgs-Gzeq Illness GeneralConfirmed Patient YesInitial Greet Date/Time 11/28/18 [...] 99 On: Room air Interpretation Interpreted by la, Pulse oximetry normal Time 0737 Portions of [...] [place] on 11/28/18 at 0954 at 2322RPT #:[id number] OF REPORTChildress [facility] Medical Center department bdwesf0314-15-51D19:49:00E.SJBH62364374-2381NCPyb ilable for patient eleoTQCPDCRIJYSMHO0424-05-23Z50:22:21 [facility]
--- NOTE | 2024-03-21 10:59 | ER ---
Nurse's Notes [facility] Name: Marcos Hobbs Age: 28 yrs Sex: Male : 1995 Arrival Date: 03/21/2024 Time: 10:38 Bed 4 Private MD: Diagnosis: Psoriasis, unspecified;Dermatitis, unspecified;Cellulitis, unspecified Presentation: 03/21 10:45 Chief complaint: Patient states: Psoriasis has spread to penile area for 1 week. Very ll1 painful, uncomfortable for 1 week. No fever. Coronavirus screen: Client denies travel out of the [place] in the last 14 days. At this time, the client does not indicate any symptoms associated with coronavirus-19. Ebola Screen: Patient denies travel to an Ebola-affected area in the 21 days before illness onset. Initial Sepsis Screen: Does the patient meet any 2 criteria? No. Patient's initial sepsis screen is negative. Does the patient have a suspected source of infection? No. Patient's initial sepsis screen is negative. Risk Assessment: Do you want to hurt yourself or someone else? Patient reports no desire to harm self or others. Onset of symptoms was March 16, 2024. 10:45 Method Of Arrival: Ambulatory ll1 10:45 Acuity: DEANA 3 ll1 Triage Assessment: 10:46 General: Appears uncomfortable, Behavior is calm, cooperative, appropriate for age. ll1 Pain: Denies pain. Derm: Reports Psoriasis has spread to penile area. Historical: - Allergies: 10:40 No Known Allergies; ll1 - PMHx: 10:40 Psoriatic Arthritis; ll1 - PSHx: 10:40 Adenoid excision; Tonsillectomy; ll1 - Immunization history:: Adult Immunizations up to date. - Infectious Disease History:: Denies. - Social history:: Smoking status: Patient reports the use of cigarette tobacco products, smokes one-half pack cigarettes per day, Reported history of juuling and/or vaping. Screenin:14 [facility] ED Fall Risk Assessment (Adult) History of falling in the last 3 months, ko1 including since admission No falls in past 3 months (0 pts) Confusion or Disorientation No (0 pts) Intoxicated or Sedated No (0 pts) Impaired Gait No (0 pts) Mobility Assist Device Used No (0 pt) Altered Elimination No (0 pt) Score/Fall Risk Level 0 - 2 = Low Risk Oriented to surroundings, Maintained a safe environment, Educated pt \T\ family on fall prevention, incl call for assistance when getting out of bed, Assessed \T\ reinforced patient's understanding of fall precautions, Provided non-skid footwear, Hourly rounding (assess needs \T\ fall precautionary measures) done. Abuse screen: Denies threats or abuse. Denies injuries from another. Nutritional screening: No deficits noted. Tuberculosis screening: No symptoms or risk factors identified. Assessment: 11:14 General: Appears in no apparent distress. Behavior is calm, cooperative, appropriate ko1 for age. Pain: Complains of pain in groin. Neuro: No deficits noted. Cardiovascular: No deficits noted. Respiratory: No deficits noted. GI: No deficits noted. : No deficits noted. EENT: No deficits noted. Derm: Rash noted that is on groin, bilat legs. Musculoskeletal: No deficits noted. Vital Signs: 10:45 BP 123 / 79; Pulse 65; Resp 16; Temp 99; Pulse Ox 99% ; Weight 102.06 kg; Height 6 ft. ll1 2 in. ; Pain 0/10; 11:14 BP 118 / 74; Pulse 68; Resp 16; Pulse Ox 99% ; ko1 10:45 Body Mass Index 28.89 (102.06 kg, 187.96 cm) ll1 10:45 Pain Scale: Adult ll1 ED Course: 10:39 Patient arrived in ED. ts1 10:39 Fracisco Raygoza MD is Attending Physician. nuzhat 10:40 Arm band placed on Patient placed in an exam room, on a stretcher. ll1 10:46 Triage completed. ll1 11:00 Meseret Leon, SANDRA is Primary Nurse. ko1 11:14 Patient has correct armband on for positive identification. Bed in low position. Call ko1 light in reach. Provided Education on: meds. Pulse ox on. NIBP on. Door closed. Noise minimized. Lights dimmed. Pillow given. 11:14 No provider procedures requiring assistance completed. Patient did not have IV access ko1 during this emergency room visit. Administered Medications: 11:05 Drug: Doxycycline PO 200 mg PO once Route: PO; ko1 11:20 Follow up: Response: No adverse reaction ko1 11:05 Drug: Trimethoprim-Sulfamethoxazole PO (160 mg-800 mg (DS) 1 tablet PO once Route: PO; ko1 11:20 Follow up: Response: No adverse reaction ko1 11:05 Drug: Mupirocin Topical Ointment 2 % 1 application Topical once; penis Route: Topical; ko1 Site: affected area; 11:19 Follow up: Response: No adverse reaction ko1 11:05 Drug: predniSONE PO 60 mg PO once Route: PO; ko1 11:19 Follow up: Response: No adverse reaction ko1 11:15 Drug: Triamcinolone Topical Cream (0.1 %) 1 application Topical once; leg Route: ko1 Topical; Site: affected area; 11:20 Follow up: Response: Medication administered at discharge. ko1 Medication: 11:14 VIS not applicable for this client. ko1 Outcome: 10:59 Discharge ordered by . nuzhat 11:14 Discharged to home ambulatory, ko1 11:14 Condition: stable 11:14 Discharge instructions given to patient, Instructed on discharge instructions, follow up and referral plans. medication usage, wound care, Demonstrated understanding of instructions, follow-up care, medications, wound care, Prescriptions given X x5 11:19 Patient left the ED. ko1 Signatures: Fracisco Raygoza MD MD cha Lewis, Lynsay, RN RN ll1 Meseret Leon RN RN ko1 Baylee Drake PAS PAS ts1 Corrections: (The following items were deleted from the chart) 10:47 10:45 Pulse 65bpm; Resp 16bpm; Pulse Ox 99%; Temp 99F; 102.06 kg; Height 6 ft. 2 in.; ll1 BMI: 28.8; Pain 0/10, Adult; ll1
--- NOTE | 2024-03-21 10:59 | EDPHYS ---
Physician Documentation [facility] Name: Marcos Hobbs Age: 28 yrs Sex: Male : 1995 Arrival Date: 03/21/2024 Time: 10:38 Bed 4 Private MD: Fracisco Palacios HPI: 03/21 10:49 This 28 yrs old Male presents to ER via Ambulatory with complaints of Penile nuzhat Problem. 10:49 The patient presents with swelling, tenderness, that is moderate. Onset: The nuzhat symptoms/episode began/occurred 2 day(s) ago. Modifying factors: The symptoms are alleviated by remaining still, the symptoms are aggravated by pressure. Associated signs and symptoms: The patient has no apparent associated signs or symptoms. Severity of symptoms: At their worst the symptoms were moderate, in the emergency department the symptoms are unchanged. The patient has experienced similar episodes in the past, multiple times. Historical: - Allergies: 10:40 No Known Allergies; ll1 - PMHx: 10:40 Psoriatic Arthritis; ll1 - PSHx: 10:40 Adenoid excision; Tonsillectomy; ll1 - Immunization history:: Adult Immunizations up to date. - Infectious Disease History:: Denies. - Social history:: Smoking status: Patient reports the use of cigarette tobacco products, smokes one-half pack cigarettes per day, Reported history of juuling and/or vaping. ROS: 10:53 Constitutional: Negative for fever, chills, and weight loss, Eyes: Negative for injury, nuzhat pain, redness, and discharge, ENT: Negative for injury, pain, and discharge, Neck: Negative for injury, pain, and swelling, Cardiovascular: Negative for chest pain, palpitations, and edema, Respiratory: Negative for shortness of breath, cough, wheezing, and pleuritic chest pain, Abdomen/GI: Negative for abdominal pain, nausea, vomiting, diarrhea, and constipation, Back: Negative for injury and pain, MS/Extremity: Negative for injury and deformity, Neuro: Negative for headache, weakness, numbness, tingling, and seizure, Psych: Negative for depression, anxiety, suicide ideation, homicidal ideation, and hallucinations, Allergy/Immunology: Negative for hives, rash, and allergies, Endocrine: Negative for neck swelling, polydipsia, polyuria, polyphagia, and marked weight changes, Hematologic/Lymphatic: Negative for swollen nodes, abnormal bleeding, and unusual bruising, 10:53 : Positive for rash, psoriasis, Exam: 10:53 Constitutional: This is a well developed, well nourished patient who is awake, alert, nuzhat and in no acute distress. Head/Face: Normocephalic, atraumatic. Eyes: Pupils equal round and reactive to light, extra-ocular motions intact. Lids and lashes normal. Conjunctiva and sclera are non-icteric and not injected. Cornea within normal limits. Periorbital areas with no swelling, redness, or edema. ENT: Nares patent. No nasal discharge, no septal abnormalities noted. Tympanic membranes are normal and external auditory canals are clear. Oropharynx with no redness, swelling, or masses, exudates, or evidence of obstruction, uvula midline. Mucous membranes moist. Neck: Trachea midline, no thyromegaly or masses palpated, and no cervical lymphadenopathy. Supple, full range of motion without nuchal rigidity, or vertebral point tenderness. No Meningismus. Chest/axilla: Normal chest wall appearance and motion. Nontender with no deformity. No lesions are appreciated. Cardiovascular: Regular rate and rhythm with a normal S1 and S2. No gallops, murmurs, or rubs. Normal PMI, no JVD. No pulse deficits. Respiratory: Lungs have equal breath sounds bilaterally, clear to auscultation and percussion. No rales, rhonchi or wheezes noted. No increased work of breathing, no retractions or nasal flaring. Abdomen/GI: Soft, non-tender, with normal bowel sounds. No distension or tympany. No guarding or rebound. No evidence of tenderness throughout. Back: No spinal tenderness. No costovertebral tenderness. Full range of motion. MS/ Extremity: Pulses equal, no cyanosis. Neurovascular intact. Full, normal range of motion. Neuro: Awake and alert, GCS 15, oriented to person, place, time, and situation. Cranial nerves II-XII grossly intact. Motor strength 5/5 in all extremities. Sensory grossly intact. Cerebellar exam normal. Normal gait. Psych: Awake, alert, with orientation to person, place and time. Behavior, mood, and affect are within normal limits. 10:53 Skin: cellulitis, that is minimal, rash a moderate rash is noted, rash can be described as nonspecific, plaque-like, raised, Vital Signs: 10:45 BP 123 / 79; Pulse 65; Resp 16; Temp 99; Pulse Ox 99% ; Weight 102.06 kg; Height 6 ft. ll1 2 in. ; Pain 0/10; 11:14 BP 118 / 74; Pulse 68; Resp 16; Pulse Ox 99% ; ko1 10:45 Body Mass Index 28.89 (102.06 kg, 187.96 cm) ll1 10:45 Pain Scale: Adult ll1 MDM: 10:40 Patient medically screened. nuzhat 10:56 Differential diagnosis: impetigo, allergic reaction. Data reviewed: vital signs, nurses nuzhat notes. Consideration of Admission/Observation Escalation of care including admission/observation considered. I considered the following discharge prescriptions or medication management in the emergency department Medications were administered in the Emergency Department. See MAR. Test considered but Not performed: Labs: no labs. Care significantly affected by the following chronic conditions: psoriasis. Administered Medications: 11:05 Drug: Doxycycline PO 200 mg PO once Route: PO; ko1 11:20 Follow up: Response: No adverse reaction ko1 11:05 Drug: Trimethoprim-Sulfamethoxazole PO (160 mg-800 mg (DS) 1 tablet PO once Route: PO; ko1 11:20 Follow up: Response: No adverse reaction ko1 11:05 Drug: Mupirocin Topical Ointment 2 % 1 application Topical once; penis Route: Topical; ko1 Site: affected area; 11:19 Follow up: Response: No adverse reaction ko1 11:05 Drug: predniSONE PO 60 mg PO once Route: PO; ko1 11:19 Follow up: Response: No adverse reaction ko1 11:15 Drug: Triamcinolone Topical Cream (0.1 %) 1 application Topical once; leg Route: ko1 Topical; Site: affected area; 11:20 Follow up: Response: Medication administered at discharge. ko1 Disposition Summary: 03/21/24 10:59 Discharge Ordered Notes: Location: Home nuzhat Problem: new nuzhat Symptoms: have improved nuzhat Condition: Stable nuzhat Diagnosis - Psoriasis, unspecified nuzhat - Dermatitis, unspecified nuzhat - Cellulitis, unspecified nuzhat Followup: nuzhat - With: Private Physician - When: 2 - 3 days - Reason: Recheck today's complaints, Re-evaluation by your physician Discharge Instructions: - Discharge Summary Sheet nuzhat - Cellulitis, Adult nuzhat - Psoriasis nuzhat - Psoriasis, [id number]-Nwom [facility] - Rash, Adult [facility] - Cellulitis, Adult, [id number]-Qzrt [facility] - Rash, Adult, Kvac-qe-Amqc [facility] Forms: - Medication Reconciliation Form [facility] - Antibiotic Education [facility] - Prescription Opioid Use [facility] - Patient Portal Instructions [facility] - Leadership Thank You Letter [facility] Prescriptions: - Centany 2 % Topical ointment - apply 1 application TOPICAL route 3 times per day; 15 gram tube; Refills: 0, [facility] Product Selection Permitted - Doxycycline Hyclate 100 mg Oral Tablet - take 1 tablet ORAL route every 12 hours; 20 tablet; Refills: 0, Product [facility] Selection Permitted - Triamcinolone Acetonide 0.1 % Topical ointment - apply 1 application TOPICAL route every 12 hours As needed; 80 gram; Refills: [facility] 0, Product Selection Permitted - Bactrim DS 800-160 mg Oral Tablet - take 1 tablet ORAL route every 12 hours for 10 days; 20 tablet; Refills: 0, [facility] Product Selection Permitted - Prednisone 20 mg Oral Tablet - take 2 tablets ORAL route once daily for 5 days; 10 tablet; Refills: 0, Product [facility] Selection Permitted Signatures: Fracisco Raygoza MD MD cha Lewis, Lynsay RN RN ll1 Meseret Leon RN RN ko1
[2024-03-21] MEDS ORDERED: predniSONE 20 MG TAB ONE (11:03)
[2024-03-21] MEDS ORDERED: MUPIROCIN 2% OINT 22GM TUBE TOP ONE (11:04)
[2024-03-21] MEDS ORDERED: SMZ./TMP. 800/160 MG TABLET ONE (11:04)
[2024-03-21] MEDS ORDERED: DOXYCYCLINE 100 MG CAP PO ONE (11:04)
[2024-03-21 11:27] VITALS: BP 118/74; TEMP 99; O2SAT 99
[2024-03-21] MEDS ORDERED: TRIAMCINOLONE ACET 0.1% CREAM 80 GM TOP SCH (21:00)
== END 2024-03-21 11:19 | disposition home or self-care (01) ==
LOC: ER 10:38
DX: L40.9 Psoriasis, unspecified (principal); L30.9 Dermatitis, unspecified; N48.22 Cellulitis of corpus cavernosum and penis
CPT/HCPCS: 99283; J7512

== ENCOUNTER 2024-08-31 13:15 | Emergency (ER) | payer SELFPAY ==
--- OUTSIDE RECORDS SUMMARY | 2024-08-31 13:18 | XMS REPORT | Continuity of Care Document ---
Author Name Unknown Address [address] [facility] [address] [place] [address] [facility] thconnect Address [address] 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 Role Phone Pcp, Patient Does Not Have A Primary Care Physic mayo Doctor Unassigned, [place] Attending Clinician Nolberto Manzano DO Attending Clinician [phone] Angelita Zepeda Attending Clinician [phone] Angelita PURVIS Attending Clinician Unavailable Yara Mujica Attending Clinician [phone] YARA QUIROGA Attending Clinician Unavailable Payers Payer Name Policy Type Policy Number Effective Date Expirati on Date Source Problems Condition Name Condition Details Condition Category Status Onset Date Resolution Date Last Treatment Date Treating Clinician Comments Source Psoriasis Psoriasis Disease Active 2013-09 00:00: 00 [facility] Psoriatic arthritis Psoriatic arthritis Disease Active 2013-09 00:00: 00 [facility] Allergies, Adverse Reactions, Alerts Allergy Name Allergy Type Status Severity Reaction(s) Onset Date Inactive Date Treating Clinician Comments Source No Known Allergie s DA Active U 11-28 00:00: 00 [facility] [place] NO KNOWN ALLERGIE S Drug Class Active [facility] Social History Social Habit Start Date Stop Date Quantity Comments Source Alcohol intake 2019-12-04 00:00:00 2019-12-04 00:00:00 [facility] Sex Assigned At 1995 00:00:00 1995 00:00:00 [facility] Smoking Status Start Date Stop Date Source Never smoked tobacco [facility] Medications Ordered Medication Name Filled Medication Name Start Date Stop Date Current Medication? Ordering Clinician Indication Dosage Frequency Signature (SIG) Comments Components Source ondansetron (ZOFRAN ODT) 4 mg disintegrat ing tablet 03-10 00:00: 00 Yes [id number] 4mg Take 1 tablet by mouth every 8 (eight) hours as needed for Nausea and Vomiting (N/V). [facility] ibuprofen 600 mg tablet 11-16 00:00: 00 Yes [id number] 600mg Take 1 tablet by mouth every 6 (six) hours as needed for Pain (scale 4-6). [facility] ibuprofen (IBU) tablet 600 mg 12-03 18:45: 00 12-03 17:41 :00 No 600mg 600 mg, Oral, ONCE, 1 dose, Mon12/04/19 at 1345, TRINO [facility] albuterol 90 mcg/actuati on inhaler 06-03 00:00: 00 Yes 2{puff} Inhale 2 Puffs every 6 (six) hours as needed for Wheezing or Shortness of Breath. [facility] azithromyci n 250 mg tablet 06-03 00:00: 00 Yes 250mg Take 1 tablet by mouth SEE-INSTRU CTIONS. Take 500 mg day 1, then 250 mg days 2 to 5. [facility] ondansetron (ZOFRAN ODT) 4 mg disintegrat ing tablet 2014-09 00:00: 00 Yes [id number] 4mg Take 1 Tab by mouth as needed for Nausea and Vomiting (N/V). [facility] sulfaSALAzi ne (AZULFIDINE ) 500 mg tablet 2014-09 00:00: 00 Yes 500mg Take 1 Tab by mouth 2 (two) times daily. [facility] zolpidem (AMBIEN) 5 mg tablet 04-28 00:00: 00 Yes 5mg Take 1 Tab by mouth at bedtime as needed for Insomnia. [facility] acetaminoph en-codeine (TYLENOL #3) 300-30 mg tablet 04-13 00:00: 00 Yes 1{tbl} Take 1 Tab by mouth every 6 (six) hours as needed (as needed for severe pain). [facility] adalimumab (HUMIRA PEN) 40 mg/0.8 mL injection 04-13 00:00: 00 Yes 40mg inject 0.8 mL under the skin every 14 (fourteen) days. [facility] foLIC acid (FOLATE) 1 mg tablet 04-13 00:00: 00 Yes 1mg Take 1 Tab by mouth daily. [facility] Vital Signs Vital Name Observation Time Observation Value Comments S ource Systolic blood pressure 2019-12-04 17:06:00 140 mm[Hg] [facility] Diastolic blood pressure 2019-12-04 17:06:00 76 mm[Hg] [facility] acute hospital Heart rate 2019-12-04 17:06:00 72 /min [facility] Body temperature 2019-12-04 17:06:[address] [facility] Respiratory rate 2019-12-04 17:06:00 18 /min [facility] Body weight 2019-12-04 17:06:00 117.935 kg [facility] Oxygen saturation in Arterial blood by Pulse oximetry 2019-12-04 17:06:00 98 /min [facility] acute hospital Systolic blood pressure 2019-12-04 17:06:00 140 mm[Hg] [facility] acute hospital Diastolic blood pressure 2019-12-04 17:06:00 76 mm[Hg] General acute hospital Heart rate 2019-12-04 17:06:00 72 /min [facility] Body temperature 2019-12-04 17:06:[address] [facility] Respiratory rate 2019-12-04 17:06:00 18 /min [facility] Body weight 2019-12-04 17:06:00 117.935 kg [facility] Oxygen saturation in Arterial blood by Pulse oximetry 2019-12-04 17:06:00 98 /min [facility] acute hospital Procedures Procedure Date / Time Performed Performing Clinician Source VACCINATIONS - CONSENTS, ELIGIBILITY, HISTORY 2022-05-17 05:01:00 Doctor Unassigned, [place] [facility] Encounters Start Date/Time End Date/Time Encounter Type Admission Type Attending Clinicians Care Facility Care Department Encounter ID Source 2022-05-17 00:00:00 2022-05-17 00:00:00 Orders Only Doctor Unassigned, [place] [facility] [id number] [id number] [facility] 2021-05-07 09:43:00 2021-05-07 10:22:00 Emergency AlvarezNolberto okeefe [facility] [id number] [id number] 2021-05-07 09:29:00 2021-05-07 09:29:00 Emergency X [facility] ERT [id number] [facility] 2021-03-10 13:05:00 2021-03-10 14:24:00 Emergency Angelita Purvis [facility] [id number] 2021-03-10 13:05:00 2021-03-10 13:05:00 Emergency X Angelita PURVIS [facility] ERT [id number] [facility] 2020-11-16 15:16:00 2020-11-16 16:37:00 Emergency Angelita Purvis [facility] [id number] 2020-11-16 15:16:00 2020-11-16 15:16:00 Emergency Angelita AMIN [facility] ERT [id number] [facility] 2020-11-16 00:00:00 2020-11-16 00:00:00 Orders Only Doctor Unassigned, [place] [facility] [id number] [id number] [id number] [id number] 2019-12-04 11:59:23 2019-12-04 13:08:00 Emergency Yara Quiroga [facility] [id number] [id number] [id number] [facility] 2019-12-04 11:59:23 2019-12-04 13:08:00 Emergency Yara Quiroga [facility] [id number] [id number] [id number] 2019-12-04 11:59:23 2019-12-04 11:59:23 Emergency YARA CHEN [facility] ERT [id number] [facility] Results Test Description Test Time Test Comments Results Resul t Comments Source - XR CHEST 1 V 2019-01-30 10:25:00 FAX: Wally Jamison [phone] [place]: EM St: REG Name: DAVID PACKER [facility] : 1995 Age/S: 23/M [address] [facility] #: [id number] Loc: E.EXP [place], [place] Phys: Wally Means AMBULANCE ASSISTANT [id number] Acct: [id number] Dis Date: Status: REG ER PHONE #: [phone] Exam Date: 01/30/2019 0950 FAX #: [phone] Reason: cough EXAMS: CPT CODE: [id number] XR CHEST 1 V 92575 Chest Radiograph History: cough Comparison: December 04, [...] Means NP Technologist: AKASH Sharifrd Date/Time/By: 01/30/2019 (3548) : By: JaisonPMT PAGE 1 Signed Report FAX: Wally Jamison [phone] [place]: St: REG Name: DAVID PACKER [facility] : 1995 Age/S: 23/M [address] [facility] #: [id number] Loc: E.EXP [place], [place] Phys: Wally Means AMBULANCE ASSISTANT [address] Acct: [id number] Dis Date: Status: REG ER PHONE #: [phone] Exam Date: 01/30/2019 0950 FAX #: [phone] Reason: cough EXAMS: CPT CODE: [id number] XR CHEST 1 V 24983 (Continued) Orig Print D/T: S: 01/30/2019 (3862) PAGE 2 Signed Report - XR CHEST 2 V 2018-12-04 10:27:00 FAX: Joan Sheehan NP [phone] [place]: St: REG Name: DAVID PACKER [facility] : 1995 Age/S: 23/M [address] [facility] [employer] Unit #: [id number] [place]: [place]: [place] [id number] Acct: [id number] Dis Date: Status: REG ER PHONE #: [phone] Exam Date: 12/04/2018 1024 FAX #: [phone] Reason: cough EXAMS: CPT CODE: [id number] XR CHEST 2 V 42581 C3 TIME OF STUDY: 12/04/2018 9:35 AM REASON FOR EXAM: cough COMPARISON: None FINDINGS: PA and lateral upright views of the chest were obtained. Lungs: Normal lung volume. No mass, or consolidation. Normal pulmonary vascularity. Pleura: No pleural effusion or pneumothorax. Heart and Mediastinum: Normal cardiomediastinal silhouette and great vessels. Bones: Normal regional skeletal structures. IMPRESSION: 1. No acute cardiopulmonary process. at 1024 Reported and signed by: Jose Boles M.D. CC: Joan Sheehan NP Technologist: CHERI GENTILE Trncrystalrd Date/Time/By: 12/04/2018 (3428) : By: [email or web address] PAGE 1 Signed Report FAX: Joan Sheehan NP [phone] [place]: EM St: REG Name: DAVID PACKER [facility] : 1995 Age/S: 23/M [address] [facility] Unit #: [id number] Loc: RAFI [place], [place] Phys: Joan Sheehan AMBULANCE ASSISTANT [address] Acct: [id number] Dis Date: Status: REG ER PHONE #: [phone] Exam Date: 12/04/2018 1024 FAX #: [phone] Reason: cough EXAMS: CPT CODE: [id number] XR CHEST 2 V [id number] (Continued) Orig Print D/T: S: 12/04/2018 (1030) PAGE 2 Signed Report
--- NOTE | 2024-08-31 16:40 | ER ---
Nurse's Notes [facility] Name: Marcos Hobbs Age: 29 yrs Sex: Male : 1995 Arrival Date: 08/31/2024 Time: 13:15 Bed 10 Private MD: Diagnosis: Psoriasis, unspecified Presentation: 08/31 13:40 Chief complaint: Patient states: Psoriasis to genital area getting worse over 1 week. ll1 No fever. Coronavirus screen: Client denies travel out of the [place] in the last 14 days. At this time, the client does not indicate any symptoms associated with coronavirus-19. Ebola Screen: Patient denies travel to an Ebola-affected area in the 21 days before illness onset. Initial Sepsis Screen: Does the patient meet any 2 criteria? No. Patient's initial sepsis screen is negative. Does the patient have a suspected source of infection? No. Patient's initial sepsis screen is negative. Risk Assessment: Do you want to hurt yourself or someone else? Patient reports no desire to harm self or others. Onset of symptoms was August 24, 2024. 13:40 Method Of Arrival: Ambulatory ll1 13:40 Acuity: DEANA 3 ll1 Triage Assessment: 13:40 General: Appears uncomfortable, Behavior is calm, cooperative, appropriate for age. ll1 Pain: Complains of pain in genitals Quality of pain is described as aching. : Reports painful rash to genitals. 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 - Social history:: Smoking status: Patient reports the use of cigarette tobacco products, smokes one-half pack cigarettes per day, Reported history of juuling and/or vaping. Screenin:01 [facility] ED Fall Risk Assessment (Adult) History of falling in the last 3 months, jb4 including since admission No falls in past 3 months (0 pts) Confusion or Disorientation No (0 pts) Intoxicated or Sedated No (0 pts) Impaired Gait No (0 pts) Mobility Assist Device Used No (0 pt) Altered Elimination No (0 pt) Score/Fall Risk Level 0 - 2 = Low Risk Oriented to surroundings, Maintained a safe environment. 17:02 Abuse screen: Denies threats or abuse. Nutritional screening: No deficits noted. jb4 Tuberculosis screening: No symptoms or risk factors identified. Assessment: 16:15 General: Appears in no apparent distress. comfortable, Behavior is calm, cooperative. jb4 Pain: Denies pain. Neuro: Level of Consciousness is awake, alert, obeys commands, Oriented to person, place, time, situation. Cardiovascular: Patient's skin is warm and dry. Respiratory: Airway is patent Respiratory effort is even, unlabored, Respiratory pattern is. Derm: Skin is intact, Skin is pink, warm \T\ dry. Rash noted that is on groin, right elbow, right knee, right victor, left knee and left victor psoriasis. 17:01 Reassessment: Patient appears in no apparent distress at this time. Patient and/or jb4 family updated on plan of care and expected duration. Pain level reassessed. Patient is alert, oriented x 3, equal unlabored respirations, skin warm/dry/pink. Vital Signs: 13:40 BP 128 / 78; Pulse 82; Resp 16; Temp 97.6; Pulse Ox 100% ; Weight 104.33 kg; Height 6 ll1 ft. 2 in. ; Pain 5/10; 13:40 Body Mass Index 29.53 (104.33 kg, 187.96 cm) ll1 13:40 Pain Scale: Adult ll1 ED Course: 13:19 Patient arrived in ED. im 13:39 Arm band placed on. ll1 13:41 Triage completed. ll1 14:57 Patient placed in an exam room, on a stretcher. ll1 15:34 Paulino Linn, SANDRA is Primary Nurse. jb4 15:44 Reg Kauffman MD is Attending Physician. bo1 17:01 Patient has correct armband on for positive identification. Bed in low position. Call jb4 light in reach. Side rails up X 1. Provided Education on: discharge instructions.. 17:01 No provider procedures requiring assistance completed. Patient did not have IV access jb4 during this emergency room visit. Administered Medications: No medications were administered Medication: 17:01 VIS not applicable for this client. jb4 Outcome: 16:39 Discharge ordered by . bo1 17:01 Discharged to home ambulatory, jb4 17:01 Condition: stable 17:01 Discharge instructions given to patient, Instructed on discharge instructions, follow up and referral plans. medication usage, Demonstrated understanding of instructions, follow-up care, medications, Prescriptions given X 3, 17:02 Patient left the ED. jb4 Signatures: Paulino Linn RN RN jb4 Mariza Norman RN RN ll1 Sarah Morrison Benjamin, MD MD bo1
--- NOTE | 2024-08-31 16:40 | EDPHYS ---
Physician Documentation [facility] Name: Marcos Hobbs Age: 29 yrs Sex: Male : 1995 Arrival Date: 08/31/2024 Time: 13:15 Bed 10 Private MD: ED Physician Reg Kauffman HPI: 08/31 16:31 This 29 yrs old Male presents to ER via Ambulatory with complaints of Psoriasis all bo1 over, Psoriasis on genitals. 16:31 Exacerbation of the plaque psoriasis since the cold weather front of previous days.. bo1 Onset: The symptoms/episode began/occurred gradually. Severity of symptoms: At their worst the symptoms were moderate Now on his penis and pt is wishing for relief. The patient has experienced similar episodes in the past, chronically, Pt is unable to afford the latest treatments for the PP and PA. Pt is uninsured and has been trying to get into a study for medication trials. He is asking for the alternatives to treat the PP and PA. 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 - Social history:: Smoking status: Patient reports the use of cigarette tobacco products, smokes one-half pack cigarettes per day, Reported history of juuling and/or vaping. ROS: 16:34 Constitutional: Negative for fever, chills, and weight loss bo1 16:34 Skin: Positive for rash, Typical lesions on his penis and extremities of plaque psoriasis and arthritis, 16:34 All other systems are negative, Exam: 16:35 Constitutional: This is a well developed, well nourished patient who is awake, alert, bo1 and in no acute distress. 16:35 Constitutional: The patient appears alert, awake, comfortable, non-toxic, Pt is here with his GF 16:35 Skin: psoriasis, Plaque type to the arms and legs and some lesions to the penis (dorsum). Pt is asking for methotrexate and mupirocin ointment, Vital Signs: 13:40 BP 128 / 78; Pulse 82; Resp 16; Temp 97.6; Pulse Ox 100% ; Weight 104.33 kg; Height 6 ll1 ft. 2 in. ; Pain 5/10; 13:40 Body Mass Index 29.53 (104.33 kg, 187.96 cm) ll1 13:40 Pain Scale: Adult ll1 MDM: 15:44 Medical Screening Exam initiated bo1 16:36 Differential Diagnosis Autoimmune flare up - pt's plaque psoriasis and arthritis. Data bo1 reviewed: vital signs, old medical records. Care significantly affected by the following chronic conditions: Hx of long standing skin/joint autoimmune disease. ED course: Will bridge this pt till he can see a brazer helper induction or custom bow maker. Administered Medications: No medications were administered Disposition Summary: 08/31/24 16:39 Discharge Ordered Notes: Location: Home bo1 Problem: an acute exacerbation bo1 Symptoms: are unchanged bo1 Condition: Stable bo1 Diagnosis - Psoriasis, unspecified bo1 Followup: bo1 - With: Private Physician - When: Upon discharge from the Emergency Department - Reason: Recheck today's complaints, Continuance of care Discharge Instructions: - Discharge Summary Sheet bo1 - Psoriasis bo1 Forms: - Medication Reconciliation Form bo1 - Antibiotic Education bo1 - Prescription Opioid Use bo1 - Patient Portal Instructions bo1 - Leadership Thank You Letter bo1 Prescriptions: - methotrexate 2 mg/mL Oral solution - take 5 milliliter ORAL route once wkly; 60 milliliter; Refills: 0, Product bo1 Selection Permitted - mupirocin 2 % Topical ointment - apply 1 application TOPICAL route 2 times per day; 15 gram tube; Refills: 0, bo1 Product Selection Permitted - Folic Acid 1 mg Oral Tablet - take 1 tablet ORAL route once daily; 30 tablet; Refills: 0, Product Selection bo1 Permitted Signatures: Mariza Norman RN RN ll1 Reg Kauffman MD MD bo1
[2024-08-31 17:07] VITALS: BP 128/78; TEMP 97.6; O2SAT 100
== END 2024-08-31 17:02 | disposition home or self-care (01) ==
LOC: ER 13:15
DX: L40.9 Psoriasis, unspecified (principal)
CPT/HCPCS: 99283